=== PATIENT | female | born 1985 | race African-American/Black ===

== ENCOUNTER 2017-11-08 07:34 | Emergency (ER) | payer OTHER, SELFPAY ==
--- OUTSIDE RECORDS SUMMARY | 2017-11-08 07:37 | XMS REPORT ---
:1985 [facility] Address [address] [place] [address] [address]. [address] [place] [address] Care Team Providers Name Role Phone Unavailable Unavailable Unavailable Problems This patient has no known problems. Allergies, Adverse Reactions, Alerts This patient has no known allergies or adverse reactions. Medications This patient has no known medications. Encounters Start End Encounter Admission Attending Care Care Encounter Date/Time Date/Time Type Type Clinicians Facility Department ID 2017-03-13 2017-03-[address] [facility] [id number] 00:00:00 00:00:00 2017-03-10 2017-03-[address] [facility] [id number] 00:00:00 00:00:00 2017-03-06 2017-03-[address] [facility] [id number] 09:54:36 09:54:36
--- OUTSIDE RECORDS SUMMARY | 2017-11-08 07:37 | XMS REPORT | Clinical Summary ---
:1985 Author Organization [facility] Address [address] [place] [address] Care Team Providers Name Role Phone Asked, No Pcp Primary Care Provider Unavailable Allergies No Known Allergies Current Medications Prescription Sig. Disp. Refills Start Date End Date Status cefpodoxime (VANTIN) Take 1 tablet 20 tablet 0 03/09/2017 03/19/2017 200 MG tablet (200 mg total) by mouth 2 (two) times a day for 10 days. ondansetron (ZOFRAN) Take 1 tablet (4 20 tablet 0 03/09/2017 03/14/2017 4 MG tablet mg total) by mouth every 6 (six) hours for 5 days. keTOROlac (TORadol) Take 1 tablet 20 tablet 0 03/11/2017 03/16/2017 10 mg tablet (10 mg total) by mouth every 6 (six) hours as needed for moderate pain for up to 5 days. Active Problems Not on file Encounters Date Type Specialty Care Team Description 03/11/2017 Emergency Emergency Medicine Carlos Hussein Pelvic pain in female (Primary Dx); DO Aubrey Urinary tract infection in female; Cervicitis 03/09/2017 Emergency Emergency Medicine Toribio Quintana Acute UTI ( urinary tract MD Will infection) (Primary Dx) after 11/07/2016 Social History Tobacco Use Types Packs/Day Years Used Date Never Smoker Alcohol Use Drinks/Week oz/Week Comments No Sex Assigned at Date Recorded Not on file Last Filed Vital Signs Vital Sign Reading Time Taken Blood Pressure 117/67 03/11/2017 1:28 AM CDT Pulse 85 03/11/2017 1:28 AM CDT Temperature 36.8 C (98.3 F) 03/11/2017 1:28 AM CDT Respiratory Rate 15 03/11/2017 1:28 AM CDT Oxygen Saturation 100% 03/11/2017 1:28 AM CDT Inhaled Oxygen Concentration - - Weight - - Height 165.1 cm (5' 5") 03/11/2017 1:28 AM CDT Body Mass Index - - Plan of Treatment Not on file Results GC By [employer] (03/09/2017 4:30 PM) Component Value Ref Range GC, [employer] Negative for Neisseria gonorrhoeae. Comment: Specimen Information Specimen Source: Cervical Specimen Site: Other Specimen Performing Laboratory Cervical - Other [facility] DEPARTMENT OF PATHOLOGY AND GENOMIC MEDICINE [address] [place] [phone] Urinalysis screen and microscopy, with reflex to culture (03/09/2017 2:58 PM) Component Value Ref Range Specimen site Clean catch Color, UA Straw Appearance, UA Clear Specific gravity, UA 1.005 1.001 - 1.035 pH, UA 8.0 5.0 - 8.5 Protein, UA Negative Negative Glucose, UA Negative Negative Ketones, UA Negative Negative Bilirubin, UA Negative Negative Blood, UA Small (A) Negative Nitrite, UA Negative Negative Urobilinogen, UA <2.0 <2.0 Leukocyte esterase, UA Large (A) Negative Epithelial cells, UA 4 /HPF WBC, UA 18 (H) 0 - 4 /HPF RBC, UA 3 (H) 0 - 2 /HPF Bacteria, UA Few None seen Yeast, UA None seen Yeast with pseudohyphae, UA None seen Specimen Performing Laboratory Urine [facility] DEPARTMENT OF PATHOLOGY AND GENOMIC MEDICINE [address] [place] [address] hCG qualitative, urine screen (03/09/2017 2:58 PM) Component Value Ref Range hCG qualitative, urine NegativeComment: Sensitivity of HCG test: 25 mIU/mL Specimen Performing Laboratory Urine [facility] DEPARTMENT OF PATHOLOGY AND GENOMIC MEDICINE [address] [place] [address] Gram stain (03/09/2017 2:58 PM) Component Value Ref Range Gram stain result Rare WBC's Rare Gram positive cocci in pairs Rare Gram negative rods Comment: Specimen Information Specimen Source: Urine Specimen Site: See UA Specimen Performing Laboratory Urine [facility] DEPARTMENT OF PATHOLOGY AND GENOMIC MEDICINE [address] [place] [phone] Urine culture (03/09/2017 2:58 PM) Component Value Ref Range Urine culture isolate Gram positive rosio 10-2 cfu/ml (A) Comment: Specimen Information Specimen Source: Urine Specimen Site: See UA Specimen Performing Laboratory Urine [facility] DEPARTMENT OF PATHOLOGY AND [facility] MEDICINE [address] [place] [id number] Estimated GFR (03/09/2017 1:30 PM) Component Value Ref Range GFR Non Af Amer >90 mL/min/1.73 m2 GFR Af Amer >90 mL/min/1.73 m2 Comment: Chronic kidney disease: <60 mL/min/1.73m2 Kidney failure: <15 mL/min/1.73m2 The estimated GFR is calculated from the IDMS-traceable Modification of Diet in Renal Disease Equation. The accuracy of the calculation is poor when the creatinine is normal. Calculated values >90 mL/min/1.73m2 are not reported. This equation has not been validated in children (<18 years), women, the elderly (>70 years), or ethnic groups other than Caucasians and Americans. Specimen Performing Laboratory Plasma specimen [facility] DEPARTMENT OF PATHOLOGY AND [address] [address] Partial thromboplastin time, activated (03/09/2017 1:30 PM) Component Value Ref Range PTT 29.4 23.0 - 36.0 sec Comment: PTT therapeutic range for unfractionated heparin is 61.0-112.0 seconds which corresponds to Anti-Xa 0.3-0.7 U/ml. Specimen Performing Laboratory Blood [facility] DEPARTMENT OF PATHOLOGY AND [facility] MEDICINE [address] [place] [address] Prothrombin time with INR (03/09/2017 1:30 PM) Component Value Ref Range Prothrombin time 13.8 12.0 - 15.0 sec INR 1.1 Comment: The International Normalized Ratio (INR) is a therapeutic monitoring tool for patients who are stable on oral anticoagulant therapy. An INR of 2.0-3.0 is suggested for deep vein thrombosis/pulmonary embolism. Specimen Performing Laboratory Blood [facility] DEPARTMENT OF PATHOLOGY AND [facility] MEDICINE [address] [place] [address] CBC with platelet and differential (03/09/2017 1:30 PM) Component Value Ref Range WBC 7.43 4.50 - 11.00 k/uL RBC 3.88 (L) 4.20 - 5.50 m/uL HGB 10.9 (L) 12.0 - 16.0 g/dL HCT 35.5 (L) 37.0 - 47.0 % MCV 91.5 82.0 - 100.0 fL MCH 28.1 27.0 - 34.0 pg MCHC 30.7 (L) 31.0 - 37.0 g/dL RDW - SD 47.1 37.0 - 55.0 fL MPV 11.3 8.8 - 13.2 fL Platelet count 212 150 - 400 k/uL Nucleated RBC 0.00 /100 WBC Neutrophils 72.6 (H) 39.0 - 69.0 % Lymphocytes 19.8 (L) 25.0 - 45.0 % Monocytes 6.3 0.0 - 10.0 % Eosinophils 0.5 0.0 - 5.0 % Basophils 0.5 0.0 - 1.0 % Immature granulocytes 0.3Comment: "Immature granulocytes" 0.0 - 1.0 % (promyelocytes, myelocytes, metamyelocytes) Specimen Performing Laboratory Blood [facility] DEPARTMENT OF PATHOLOGY AND [facility] MEDICINE [address] [place] [address] Lipase level (03/09/2017 1:30 PM) Component Value Ref Range Lipase 22 13 - 60 U/L Specimen Performing Laboratory Plasma specimen [facility] DEPARTMENT OF PATHOLOGY AND GENOMIC MEDICINE [address] [place] [phone] Comprehensive metabolic panel (03/09/2017 1:30 PM) Component Value Ref Range Sodium 141 135 - 148 mEq/L Potassium 3.2 (L) 3.5 - 5.0 mEq/L Chloride 101 98 - 112 mEq/L CO2 29 24 - 31 mEq/L Anion gap 11 7 - 15 mEq/L Comment: Starting from November , anion gap calculation no longer incorporates potassium. Please note the change. BUN 7 6 - 20 mg/dL Creatinine 0.7 0.5 - 0.9 mg/dL Glucose 78 65 - 99 mg/dL Calcium 9.4 8.3 - 10.2 mg/dL Protein 7.9 6.3 - 8.3 g/dL Comment: 4.6-7.0 g/dL 1 week 4.4-7.6 g/dL 7 months-1year5.1-7.3 g/dL 1-2 years5.6-7.5 g/dL >3 years6.0-8.0 g/dL 18-150 6.3-8.3 g/dL Albumin 3.6 3.5 - 5.0 g/dL A/G ratio 0.8 0.7 - 3.8 Alkaline phosphatase 49 35 - 104 U/L AST 22 10 - 35 U/L ALT 15 5 - 50 U/L Total bilirubin 0.7 0.0 - 1.2 mg/dL Specimen Performing Laboratory Plasma specimen [facility] DEPARTMENT OF PATHOLOGY AND GENOMIC MEDICINE [address] [place] [id number] after 11/07/2016 Insurance Payer Benefit Plan / Group Subscriber ID Type Phone Address [employer] [facility] xxxxxxxxx O
[2017-11-08 08:43] LABS: Urine Blood 2+ (NEG); Urine Glucose NEGATIVE (NEG); Urine Protein NEGATIVE (NEG); Urine Specific Gravity 1.025 (1.005-1.030); Urine pH 6.5 (5.0-7.0)
[2017-11-08 08:48] LABS: Absolute Lymphocytes (CBC) 1.4 K/uL (0.7-4.9); Absolute Monocytes 0.4 K/uL (0.1-1.3); Absolute Neutrophil 2.5 K/uL (1.8-8.0); Basophils % 0.7 % (0-1.3); Eosinophils % 2.5 % (0-4.4); Hematocrit 33.4 % (36.0-45.0); Lymphocytes % 32.1 % (15.3-44.8); MCH 27.1 pg (27.0-35.0); MCV 85.9 fL (80-100); MPV 9.6 fL (7.6-11.3); RBC Red Blood Cell Count 3.89 M/uL (3.86-4.86)
[2017-11-08 08:59] LABS: Urine Bacteria <20 /HPF (<20); Urine Culture Reflex Order NOT NEEDED; Urine RBC <5 /HPF (NONE SEEN)
--- NOTE | 2017-11-08 09:03 | RAD REPORT ---
EXAM DESCRIPTION: CT - Stone Protocol - 11/08/2017 8:47 am CLINICAL HISTORY: Abdominal pain. Left lower quadrant pain COMPARISON: None. TECHNIQUE: Computed axial tomography of the abdomen pelvis was obtained without oral or IV contrast. Lack of IV and oral contrast limits evaluation of solid organs, bowel, and vessels. Coronal reformat amparo images were obtained and reviewed. All CT scans are performed using dose optimization technique as appropriate and may include automated exposure control or mA/KV adjustment according to patient size. FINDINGS: A renal calculus is not seen. An ureteral calculus is not noted. A bladder calculus is not present. The liver, spleen, pancreas and adrenals appear grossly normal There is no evidence of diverticulitis. The appendix appears normal. An adnexal mass is not displayed A large amount stool is present throughout the colon. There is an equivocal small umbilical hernia IMPRESSION: Negative for a genitourinary calculus A large amount stool is present throughout the colon
[2017-11-08 09:27] LABS: Bicarbonate 29 mEq/L (21-31); Glucose Level 95 mg/dL (65-120); Lipase 35 U/L (22-51); Potassium 3.5 mEq/L (3.6-5.0); Sodium Level 136 mEq/L (135-145)
--- NOTE | 2017-11-08 09:29 | EDPHYS ---
Physician Documentation [facility] Name: Trina Grimaldo Age: 32 yrs Sex: Female : 1985 Arrival Date: 11/08/2017 Time: 07:36 Bed 15 Private MD: ED Physician Dani Wu HPI: 11/08 08:00 This 32 yrs old Black Female presents to ER via Unassigned with complaints of Abdominal rn Pain. 08:00 The patient presents with abdominal pain in the left lower quadrant, left flank. Onset: rn The symptoms/episode began/occurred 1 month(s) ago. The symptoms do not radiate. Associated signs and symptoms: Pertinent negatives: nausea and vomiting, anorexia, blood in stools, chest pain, constipation, diarrhea, dysuria, fever, hematuria, vaginal discharge, vomiting. The symptoms are described as crampy. Modifying factors: The symptoms are alleviated by nothing, the symptoms are aggravated by nothing. Severity of pain: At its worst the pain was moderate in the emergency department the pain has improved. The patient has not experienced similar symptoms in the past. The patient has not recently seen a physician. 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 - Family history:: not pertinent. - Social history:: Smoking status: Patient/guardian denies using tobacco. - Hospitalizations: : No recent hospitalization is reported. ROS: 08:00 Constitutional: Negative for fever, chills, and weight loss, Eyes: Negative for injury, rn pain, redness, and discharge, Neck: Negative for injury, pain, and swelling, Cardiovascular: Negative for chest pain, palpitations, and edema, Respiratory: Negative for shortness of breath, cough, wheezing, and pleuritic chest pain, Abdomen/GI: Negative for nausea, vomiting, diarrhea, and constipation, MS/Extremity: Negative for injury and deformity, Skin: Negative for injury, rash, and discoloration, Neuro: Negative for headache, weakness, numbness, tingling, and seizure. Exam: 08:00 Constitutional: This is a well developed, well nourished patient who is awake, alert, rn and in no acute distress. Head/Face: Normocephalic, atraumatic. Eyes: Pupils equal round and reactive to light, extra-ocular motions intact. Lids and lashes normal. Conjunctiva and sclera are non-icteric and not injected. Cornea within normal limits. Periorbital areas with no swelling, redness, or edema. Cardiovascular: Regular rate and rhythm with a normal S1 and S2. No gallops, murmurs, or rubs. Normal PMI, no JVD. No pulse deficits. Respiratory: Lungs have equal breath sounds bilaterally, clear to auscultation and percussion. No rales, rhonchi or wheezes noted. No increased work of breathing, no retractions or nasal flaring. Abdomen/GI: soft, mild Left flank tenderness, no rebound/guarding Back: No spinal tenderness. No costovertebral tenderness. Full range of motion. Skin: Warm, dry with normal turgor. Normal color with no rashes, no lesions, and no evidence of cellulitis. MS/ Extremity: Pulses equal, no cyanosis. Neurovascular intact. Full, normal range of motion. Equal circumference. Neuro: Awake and alert, GCS 15, oriented to person, place, time, and situation. Cranial nerves II-XII grossly intact. Motor strength 5/5 in all extremities. Sensory grossly intact. Cerebellar exam normal. Normal gait. Vital Signs: 07:40 BP 116 / 90; Pulse 78; Resp 18; Temp 98.3(O); Pulse Ox 100% on R/A; Weight 54.43 kg; rb1 Height 5 ft. 5 in. (165.10 cm); Pain 8/10; 08:38 rb1 08:48 BP 112 / 64; Pulse 64; Resp 19; Pulse Ox 100% on R/A; rb1 09:38 BP 114 / 86; Pulse 67; Resp 16; Pulse Ox 100% on R/A; rb1 07:40 Body Mass Index 19.97 (54.43 kg, 165.10 cm) rb1 08:[address] rb1 MDM: 07:39 Patient medically screened. rn 09:28 Differential diagnosis: diverticulitis, non-specific abd pain, Ureterolithiasis, rn urinary tract infection. Data reviewed: vital signs, nurses notes, lab test result(s), radiologic studies, CT scan, and as a result, I will discharge patient. Counseling: I had a detailed discussion with the patient and/or guardian regarding: the historical points, exam findings, and any diagnostic results supporting the discharge/admit diagnosis, lab results, radiology results, the need for outpatient follow up, to return to the emergency department if symptoms worsen or persist or if there are any questions or concerns that arise at home. Special discussion: I discussed with the patient/guardian in detail that at this point there is no indication for admission to the hospital. It is understood, however, that if the symptoms persist or worsen the patient needs to return immediately for re-evaluation. 11/08 07:57 Order name: Basic Metabolic Panel; Complete Time: 09:34 rn 11/08 07:57 Order name: CBC with Diff; Complete Time: 09:12 rn 11/08 07:57 Order name: Hepatic Function; Complete Time: 09:34 rn 11/08 07:57 Order name: Lipase; Complete Time: 09:34 rn 11/08 07:57 Order name: Urine Microscopic Only; Complete Time: 09:12 rn 11/08 08:04 Order name: Urine Dipstick--Ancillary (enter results); Complete Time: 09:12 bd 11/08 07:57 Order name: Urine Test (obtain specimen); Complete Time: 08:33 rn 11/08 07:57 Order name: IV Saline Lock; Complete Time: 08:33 rn 11/08 07:57 Order name: Labs collected and sent; Complete Time: 08:33 rn 11/08 07:57 Order name: Urine Dipstick-Ancillary (obtain specimen); Complete Time: 08:33 rn 11/08 07:57 Order name: CT Stone Protocol; Complete Time: 09:12 rn 11/08 08:04 Order name: Urine --Ancillary (enter results); Complete Time: 09:12 bd Administered Medications: No medications were administered Disposition: 11/08/17 09:29 Discharged to Home. Impression: Unspecified abdominal pain, Constipation, unspecified. - Condition is Stable. - Discharge Instructions: Abdominal Pain, Adult, Abdominal Pain, Women, Constipation, Adult, [id number]. - Medication Reconciliation Form, Thank You Letter, Antibiotic Education, Prescription Opioid Use form. - Follow up: Private Physician; When: As needed; Reason: Recheck today's complaints, Re-evaluation by your physician. - Problem is an ongoing problem. - Symptoms are unchanged. Signatures: Dispatcher [employer] EDDani Garvey MD MD rn Jaja Villanueva RN RN rb1
--- NOTE | 2017-11-08 09:29 | ER ---
Nurse's Notes [facility] Name: Trina Grimaldo Age: 32 yrs Sex: Female : 1985 Arrival Date: 11/08/2017 Time: 07:36 Bed 15 Private MD: Diagnosis: Unspecified abdominal pain;Constipation, unspecified Presentation: 11/08 07:40 Presenting complaint: Patient states: lower left back and side has been hurting for a rb1 month. The pain comes and goes. Transition of care: patient was not received from another setting of care. Onset of symptoms is unknown. Care prior to arrival: None. 07:40 Method Of Arrival: Ambulatory rb1 07:40 Acuity: TRI 3 rb1 Triage Assessment: 07:40 General: Appears in no apparent distress. comfortable, slender, Behavior is calm, rb1 cooperative. Pain: Complains of pain in left flank Pain currently is 8 out of 10 on a pain scale. Quality of pain is described as crampy. Neuro: Level of Consciousness is awake, alert, obeys commands, Oriented to person, place, time, situation. Cardiovascular: Capillary refill < 3 seconds is brisk in bilateral fingers. Respiratory: Airway is patent Respiratory effort is even, unlabored, Respiratory pattern is regular, symmetrical. GI: Patient currently denies diarrhea, nausea, vomiting. : No signs and/or symptoms were reported regarding the genitourinary system. Derm: Skin is dry, Skin is normal, Skin temperature is warm. 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 - Family history:: not pertinent. - Social history:: Smoking status: Patient/guardian denies using tobacco. - Hospitalizations: : No recent hospitalization is reported. Screenin:40 Abuse screen: Denies threats or abuse. Nutritional screening: No deficits noted. rb1 Tuberculosis screening: No symptoms or risk factors identified. Fall Risk None identified. Assessment: 07:40 General: See triage assessment. rb1 07:40 GI: Bowel sounds present X 4 quads. Abd is soft Abd is non tender in left flank. rb1 08:35 Reassessment: Patient appears in no apparent distress at this time. No changes from rb1 previously documented assessment. pt. is watching TV. Call light within reach. 08:38 Reassessment: pt. went to CT. rb1 09:30 Reassessment: Patient appears in no apparent distress at this time. Patient and/or rb1 family updated on plan of care and expected duration. Pain level reassessed. Patient is alert, oriented x 3, equal unlabored respirations, skin warm/dry/pink. Vital Signs: 07:40 BP 116 / 90; Pulse 78; Resp 18; Temp 98.3(O); Pulse Ox 100% on R/A; Weight 54.43 kg; rb1 Height 5 ft. 5 in. (165.10 cm); Pain 8/10; 08:38 rb1 08:48 BP 112 / 64; Pulse 64; Resp 19; Pulse Ox 100% on R/A; rb1 09:38 BP 114 / 86; Pulse 67; Resp 16; Pulse Ox 100% on R/A; rb1 07:40 Body Mass Index 19.97 (54.43 kg, 165.10 cm) rb1 08:[address] rb1 ED Course: 07:36 Patient arrived in ED. as 07:39 Dani Wu MD is Attending Physician. rn 07:40 Arm band placed on right wrist. rb1 07:40 Patient has correct armband on for positive identification. Bed in low position. Call rb1 light in reach. Side rails up X 1. Pulse ox on. NIBP on. 08:00 Jaja Villanueva, RN is Primary Nurse. rb1 08:00 Inserted saline lock: 22 gauge in right antecubital area, using aseptic technique. rb1 Blood collected. 08:02 Triage completed. rb1 08:[address] rb1 08:47 CT Stone Protocol In Process Unspecified. EDMS 08:47 CT completed. Patient moved back from CT. jg1 09:40 No provider procedures requiring assistance completed. IV discontinued, intact, rb1 bleeding controlled, No redness/swelling at site. Pressure dressing applied. Administered Medications: No medications were administered Outcome: :29 Discharge ordered by MD. rn 09:40 Discharged to home ambulatory. rb1 09:40 Condition: stable 09:40 Discharge instructions given to patient, Instructed on discharge instructions, follow up and referral plans. Demonstrated understanding of instructions, follow-up care, Prescriptions given X none 09:40 Patient left the ED. rb1 Signatures: Dispatcher [employer] Bernarda Menezes Amelia as Nieto, Roman, MD MD rn Barber, Rebecca, RN RN rb1 Corrections: (The following items were deleted from the chart) 08:38 07:40 Pain: Complains of pain in left mid back Pain currently is 8 out of 10 on a pain rb1 scale. Quality of pain is described as crampy, rb1 09:42 09:41 Patient left the ED. rb1 rb1
[2017-11-08 09:33] LABS: ALT/SGPT 13 IU/L (10-60); AST/SGOT 21 IU/L (10-42); Albumin 3.7 g/dL (3.2-5.5); Alkaline Phosphatase 42 IU/L (42-121); BUN Blood Urea Nitrogen 12 mg/dL (6-20); Bilirubin Direct 0.1 mg/dL (0-0.2); Bilirubin Total 0.2 mg/dL (0.3-1.2); Glomerular Filtration Rate > 90 mL/min (=/>90); Protein, Total 7.2 g/dL (6.0-8.3)
== END 2017-11-08 09:41 | disposition home or self-care (01) ==
LOC: ER 07:34
DX: K59.00 Constipation, unspecified (principal)
CPT/HCPCS: 36415; 74176; 76377; 80048; 80076; 81003; 81015; 81025; 83690; 85025; 99284

== ENCOUNTER 2017-11-15 | Emergency (ER) | payer OTHER, SELFPAY ==
--- OUTSIDE RECORDS SUMMARY | 2017-11-15 17:35 | XMS REPORT ---
:1985 [facility] Address [address] [place] [address] [address]. [address] [place] [address] Care Team Providers Name Role Phone Unavailable Unavailable Unavailable Problems This patient has no known problems. Allergies, Adverse Reactions, Alerts This patient has no known allergies or adverse reactions. Medications This patient has no known medications. Encounters Start End Encounter Admission Attending Care Care Encounter Date/Time Date/Time Type Type Clinicians Facility Department ID 2017-03-13 2017-03-13 Outpatient [facility] [id number] 00:00:00 00:00:00 2017-03-10 2017-03-10 Outpatient [facility] [id number] 00:00:00 00:00:00 2017-03-06 2017-03-06 Outpatient [facility] [id number] 09:54:36 09:54:36
--- OUTSIDE RECORDS SUMMARY | 2017-11-15 17:35 | XMS REPORT | Clinical Summary ---
:1985 Author Organization [facility] Address [address] [place] [address] Care Team Providers Name Role Phone Asked, [...] tract MD Will infection) (Primary Dx) after 11/14/2016 Social History Tobacco Use Types Packs/Day Years [...] Other Specimen Performing Laboratory Cervical - Other [facility] DEPARTMENT OF PATHOLOGY AND GENOMIC MEDICINE [address] [place] [phone] Urinalysis screen and microscopy, with reflex to [...] UA None seen Specimen Performing Laboratory Urine [facility] DEPARTMENT OF PATHOLOGY AND GENOMIC MEDICINE [address] [place] [address] [phone] hCG qualitative, urine screen (03/09/2017 2:58 PM) Component Value Ref Range hCG qualitative, urine NegativeComment: Sensitivity of HCG test: 25 mIU/mL Specimen Performing Laboratory Urine [facility] DEPARTMENT OF PATHOLOGY AND GENOMIC MEDICINE [address] [place] [address] [phone] Gram stain (03/09/2017 2:58 PM) Component Value Ref Range Gram stain result Rare WBC's Rare Gram positive cocci in pairs Rare Gram negative rods Comment: Specimen Information Specimen Source: Urine Specimen Site: See UA Specimen Performing Laboratory Urine [facility] DEPARTMENT OF PATHOLOGY AND GENOMIC MEDICINE [address] [place] [address] [phone] Urine culture (03/09/2017 2:58 PM) Component Value Ref Range Urine culture isolate Gram positive rosio 10-2 cfu/ml (A) Comment: Specimen Information Specimen Source: Urine Specimen Site: See UA Specimen Performing Laboratory Urine [facility] DEPARTMENT OF PATHOLOGY AND [facility] [address] [place] [address] 11004 Estimated GFR (03/09/2017 1:30 PM) Component Value [...] and Americans. Specimen Performing Laboratory Plasma specimen [facility] DEPARTMENT OF PATHOLOGY AND [address] [address] Partial thromboplastin time, activated (03/09/2017 1:30 PM) Component Value Ref Range PTT 29.4 23.0 - 36.0 sec Comment: PTT therapeutic range for unfractionated heparin is 61.0-112.0 seconds which corresponds to Anti-Xa 0.3-0.7 U/ml. Specimen Performing Laboratory Blood [facility] DEPARTMENT OF PATHOLOGY AND [facility] [address] [place] [address]108 Prothrombin time with INR (03/09/2017 1:30 PM) Component Value Ref Range Prothrombin time 13.8 12.0 - 15.0 sec INR 1.1 Comment: The International Normalized Ratio (INR) is a therapeutic monitoring tool for patients who are stable on oral anticoagulant therapy. An INR of 2.0-3.0 is suggested for deep vein thrombosis/pulmonary embolism. Specimen Performing Laboratory Blood [facility] DEPARTMENT OF PATHOLOGY AND [facility] [address] [place] [address] 41986 CBC with platelet and differential (03/09/2017 1:30 [...] (promyelocytes, myelocytes, metamyelocytes) Specimen Performing Laboratory Blood [facility] DEPARTMENT OF PATHOLOGY AND [facility] [address] [place] [phone] Lipase level (03/09/2017 1:30 PM) Component Value Ref Range Lipase 22 13 - 60 U/L Specimen Performing Laboratory Plasma specimen [facility] DEPARTMENT OF PATHOLOGY AND GENOMIC MEDICINE [address] [place] [phone] Comprehensive metabolic panel (03/09/2017 1:30 PM) Component [...] 1.2 mg/dL Specimen Performing Laboratory Plasma specimen [facility] DEPARTMENT OF PATHOLOGY AND GENOMIC MEDICINE [address] [place] [address] after 11/14/2016 Insurance Payer Benefit Plan / Group Subscriber ID Type Phone Address [employer] [facility] xxxxxxxxx O
--- NOTE | 2017-11-15 18:49 | EDPHYS ---
Physician Documentation [facility] Name: Trina Grimaldo Age: 32 yrs Sex: Female : 1985 Arrival Date: 11/15/2017 Time: 17:36 Bed 17 Private MD: ED Physician Campbell Grove HPI: 11/15 23:15 This 32 yrs old Black Female presents to ER via Ambulatory with complaints of Foot Pain.kdr 23:15 The patient presents with pain, that is chronic, tenderness, red and cracking between kdr her toes on both feet. The complaints affect the left foot, right foot. Context: The problem was sustained at home, resulted from a chronic condition. Onset: The symptoms/episode began/occurred at an unknown time. Modifying factors: The symptoms are alleviated by nothing, the symptoms are aggravated by spray solutions. Associated signs and symptoms: The patient has no apparent associated signs or symptoms. Severity of symptoms: At their worst the symptoms were mild. The patient has experienced similar episodes in the past. The patient has not recently seen a physician. 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 - Social history:: Smoking status: Patient/guardian denies using tobacco. ROS: 23:15 MS/extremity: Positive for erythema, pain, tenderness, cracked skin between all toes. kdr 23:18 Constitutional: Negative for fever, chills, and weight loss. kdr Exam: 23:15 Constitutional: This is a well developed, well nourished patient who is awake, alert, kdr and in no acute distress. 23:15 Musculoskeletal/extremity: Typical tenia pedis presentation on both feet. Vital Signs: 17:40 BP 117 / 77; Pulse 68; Resp 18; Temp 98.6(O); Pulse Ox 100% on R/A; Weight 56.7 kg; hj Height 5 ft. 5 in. (165.10 cm); Pain 9/10; 17:40 Body Mass Index 20.80 (56.70 kg, 165.10 cm) jihan MDM: 18:48 Patient medically screened. kdr 23:18 Data reviewed: vital signs, nurses notes. Counseling: I had a detailed discussion with kdr the patient and/or guardian regarding: the historical points, exam findings, and any diagnostic results supporting the discharge/admit diagnosis, the need for outpatient follow up. Administered Medications: No medications were administered Disposition: 11/15/17 18:48 Discharged to Home. Impression: Tinea pedis. - Condition is Stable. - Discharge Instructions: Athlete's Foot, [id number]. - Prescriptions for Clotrimazole 1 % Topical Cream - Apply to affected area 1 application by TOPICAL route every 12 hours; 15 gram. - Medication Reconciliation Form, Thank You Letter, Antibiotic Education, Prescription Opioid Use form. - Follow up: Private Physician; When: 2 - 3 days; Reason: If symptoms return, Further diagnostic work-up, Recheck today's complaints, Continuance of care, Re-evaluation by your physician. - Problem is an ongoing problem. - Symptoms are unchanged. Signatures: Campbell Grove MD MD kdr Munoz, Edgar, CONDUCTOR ORCHESTRA CONDUCTOR ORCHESTRA Joel Handy, RN RN
--- NOTE | 2017-11-15 18:49 | ER ---
Nurse's Notes [facility] Name: Trina Grimaldo Age: 32 yrs Sex: Female : 1985 Arrival Date: 11/15/2017 Time: 17:36 Bed 17 Private MD: Diagnosis: Tinea pedis Presentation: 11/15 17:37 Presenting complaint: Patient states: i used a spray for both my foot coz i wear tennis hj shoes and it mariscal and makes it worst;. Transition of care: patient was not received from another setting of care. Onset of symptoms was November 15, 2017. Care prior to arrival: None. 17:37 Method Of Arrival: Ambulatory 17:37 Acuity: TRI 4 hj Triage Assessment: 17:39 General: Appears in no apparent distress. uncomfortable, Behavior is calm, cooperative, hj appropriate for age. Pain: Complains of pain in right foot and left foot. 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 - Social history:: Smoking status: Patient/guardian denies using tobacco. Screenin:57 Abuse screen: Denies threats or abuse. Nutritional screening: No deficits noted. em Tuberculosis screening: No symptoms or risk factors identified. Fall Risk None identified. Assessment: 18:01 General: Appears in no apparent distress. comfortable. Pain: Complains of pain in left em foot and right foot. Neuro: Level of Consciousness is awake, alert, obeys commands, Oriented to person, place, time, situation. Cardiovascular: Capillary refill < 3 seconds Patient's skin is warm and dry. Respiratory: Airway is patent Respiratory effort is even, unlabored, Respiratory pattern is regular, symmetrical. GI: Abdomen is flat. : No signs and/or symptoms were reported regarding the genitourinary system. EENT: No signs and/or symptoms were reported regarding the EENT system. Derm: Skin is intact, Skin is pink, warm \T\ dry. appears to be classic tinea pedis in between webbing of toes. Musculoskeletal: Range of motion: intact in all extremities. 18:15 General: The previous assessment is accurate, call light remains within reach. Vital Signs: 17:40 BP 117 / 77; Pulse 68; Resp 18; Temp 98.6(O); Pulse Ox 100% on R/A; Weight 56.7 kg; hj Height 5 ft. 5 in. (165.10 cm); Pain 9/10; 17:40 Body Mass Index 20.80 (56.70 kg, 165.10 cm) ED Course: 17:36 Patient arrived in ED. tw3 17:37 Campbell Grove MD is Attending Physician. kdr 17:39 Triage completed. hj 17:39 Arm band placed on left wrist. hj 18:31 James Garcia LVN is Primary Nurse. em 18:57 Patient has correct armband on for positive identification. Bed in low position. Call em light in reach. 18:57 No provider procedures requiring assistance completed. Patient did not have IV access em during this emergency room visit. Administered Medications: No medications were administered Outcome: 18:48 Discharge ordered by . kdr 18:58 Discharged to home ambulatory. em 18:58 Condition: good 18:58 Discharge instructions given to patient, Instructed on discharge instructions, follow up and referral plans. medication usage, Demonstrated understanding of instructions, follow-up care, medications, Prescriptions given X 1. 18:58 Patient left the ED. em Signatures: Campbell Grove MD MD [facility] James Garcia LVN LVN em Alejandra Mccain RN RN Joel Logan RN RN Shena Wilcox tw3 Corrections: (The following items were deleted from the chart) 17:42 17:40 Pulse 68bpm; Resp 18bpm; Pulse Ox 100% RA; Temp 98.6F Oral; 56.7 kg; Height 5 ft. hj 5 in.; BMI: 20.8; Pain 9/10; hj
== END 2017-11-15 18:58 | disposition home or self-care (01) ==
DX: B35.3 Tinea pedis (principal)
CPT/HCPCS: 99282

== ENCOUNTER 2018-03-24 01:20 | Emergency (ER) | payer SELFPAY ==
--- OUTSIDE RECORDS SUMMARY | 2018-03-24 01:22 | XMS REPORT | Clinical Summary ---
:1985 Author Organization [facility] Address [address] [place] [address] Care Team Providers Name Role Phone Asked, No Pcp Primary Care Provider Unavailable Allergies No Known Allergies Current Medications No known medications Active Problems Not on file Social History Tobacco Use Types Packs/Day Years Used Date Never Smoker Alcohol Use Drinks/Week oz/Week Comments No Sex Assigned at Date Recorded Not on file Last Filed Vital Signs Not on file Plan of Treatment Not on file Results Not on fileafter 03/23/2017 Insurance Payer Benefit Plan / Group Subscriber ID Type Phone Address [employer] [facility] xxxxxxxxx O
--- OUTSIDE RECORDS SUMMARY | 2018-03-24 01:22 | XMS REPORT ---
:1985 [facility] Address [address] [place] [address] [address] [place] [address] Care Team Providers Name Role Phone Unavailable Unavailable Unavailable Problems This patient has no known problems. Allergies, Adverse Reactions, Alerts This patient has no known allergies or adverse reactions. Medications This patient has no known medications. Encounters Start End Encounter Admission Attending Care Care Encounter Date/Time Date/Time Type Type Clinicians Facility Department ID 2017-03-13 2017-03-13 Outpatient [facility] [id number] 00:00:00 00:00:00 2017-03-10 2017-03-10 Outpatient [facility] [id number] 00:00:00 00:00:00 2017-03-06 2017-03-06 Outpatient [facility] [id number] 09:54:36 09:54:36
--- NOTE | 2018-03-24 01:45 | ER ---
Nurse's Notes [facility] Name: Trina Grimaldo Age: 33 yrs Sex: Female : 1985 Arrival Date: 03/24/2018 Time: 01:21 Bed 24 Private MD: Diagnosis: Periapical abscess without sinus Presentation: 03/24 01:30 Presenting complaint: Patient states: Pain to left lower side of mouth; States dentist lp1 appt scheduled for 03/29 but pain was unbearable tonight, had to leave work; Denies any fever. Transition of care: patient was not received from another setting of care. Onset of symptoms was March 24, 2018. Risk Assessment: Do you want to hurt yourself or someone else? Patient reports no desire to harm self or others. Initial Sepsis Screen: Does the patient meet any 2 criteria? No. Patient's initial sepsis screen is negative. Does the patient have a suspected source of infection? No. Patient's initial sepsis screen is negative. Care prior to arrival: None. 01:30 Method Of Arrival: Ambulatory lp1 01:30 Acuity: TRI 5 lp1 Triage Assessment: 01:33 Pain: Complains of pain in lower left second molar. EENT: Poor dentition noted. Dental lp1 caries noted in lower left third molar (#17), lower left second molar (#18), lower right second molar (#31) and lower right third molar (#32). 01:34 EENT: Reports pain in lower left second molar Pain is 10 out of 10 on a pain scale. 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 - Social history:: Smoking status: Patient/guardian denies using tobacco. - Ebola Screening: : No symptoms or risks identified at this time. Screenin:32 Abuse screen: Denies threats or abuse. Denies injuries from another. Nutritional lp1 screening: No deficits noted. Tuberculosis screening: No symptoms or risk factors identified. Fall Risk None identified. Assessment: 01:33 General: Appears in no apparent distress. comfortable, Behavior is calm, cooperative. rv Pain: Complains of pain in toothache. Neuro: Level of Consciousness is awake, alert, obeys commands, Oriented to person, place, time, situation. Cardiovascular: Capillary refill < 3 seconds. Respiratory: Airway is patent. GI: No signs and/or symptoms were reported involving the gastrointestinal system. : No signs and/or symptoms were reported regarding the genitourinary system. EENT: No deficits noted. Derm: Skin is intact. Musculoskeletal: No deficits noted. Vital Signs: 01:31 BP 122 / 91; Pulse 78; Resp 16; Temp 98.7(O); Pulse Ox 100% on R/A; Weight 58.97 kg; lp1 Height 5 ft. 5 in. (165.10 cm); Pain 10/10; 01:31 Body Mass Index 21.63 (58.97 kg, 165.10 cm) lp1 ED Course: 01:21 Patient arrived in ED. am2 01:30 Ty Byers NP is PHCP. pm1 01:30 Jean-Claude Farrar MD is Attending Physician. pm1 01:31 Triage completed. lp1 01:31 Arm band placed on left wrist. lp1 01:33 Patient has correct armband on for positive identification. lp1 02:00 No provider procedures requiring assistance completed. Patient did not have IV access rv during this emergency room visit. Administered Medications: 01:59 Drug: [place] 10 mg-325 mg 1 tabs Route: PO; rv 01:59 Follow up: Response: Medication administered at discharge. rv 02:00 Drug: Augmentin 875 mg Route: PO; rv 02:00 Follow up: Response: Medication administered at discharge. rv Outcome: 01:44 Discharge ordered by . pm1 02:00 Discharged to home rv 02:00 Condition: good 02:00 Discharge instructions given to patient, Instructed on discharge instructions, follow up and referral plans. medication usage, Prescriptions given X 2. 02:00 Patient left the ED. rv Signatures: Maggi Crenshaw RN RN lp1 Ty Byers NP MACHINE BRUSHER pm1 Fanta Swartz am2 Hugo Santiago RN RN rv
--- NOTE | 2018-03-24 01:45 | EDPHYS ---
Physician Documentation [facility] Name: Trina Grimaldo Age: 33 yrs Sex: Female : 1985 Arrival Date: 03/24/2018 Time: 01:21 Bed 24 Private MD: ED Physician Jean-Claude Farrar HPI: 03/24 01:40 This 33 yrs old Black Female presents to ER via Ambulatory with complaints of Toothache.pm1 01:40 The patient presents with pain. The problem is located in the lower left third molar, pm1 lower left second molar and lower left first molar. Onset: The symptoms/episode began/occurred 2 day(s) ago. Duration: The symptoms are continuous. Modifying factors: The symptoms are alleviated by nothing, the symptoms are aggravated by nothing. Associated signs and symptoms: Pertinent negatives: dysphagia, fever, inability to eat. Severity of symptoms: in the emergency department the symptoms are actually worse. The patient has experienced similar episodes in the past, a few times. The patient has not recently seen a physician, has an appointment scheduled, in 5 day(s). 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 - Social history:: Smoking status: Patient/guardian denies using tobacco. - Ebola Screening: : No symptoms or risks identified at this time. ROS: 01:40 Constitutional: Negative for fever, chills, and weight loss, Eyes: Negative for injury, pm1 pain, redness, and discharge, Neck: Negative for injury, pain, and swelling, Cardiovascular: Negative for chest pain, palpitations, and edema, Respiratory: Negative for shortness of breath, cough, wheezing, and pleuritic chest pain. 01:40 Abdomen/GI: Negative for abdominal pain, nausea, vomiting, diarrhea, and constipation, Back: Negative for injury and pain, MS/Extremity: Negative for injury and deformity, Skin: Negative for injury, rash, and discoloration, Neuro: Negative for headache, weakness, numbness, tingling, and seizure. 01:40 ENT: Positive for dental pain, Negative for ear pain, sore throat, difficulty swallowing, difficulty handling secretions. Exam: 01:40 Constitutional: This is a well developed, well nourished patient who is awake, alert, pm1 and in no acute distress. Head/Face: Normocephalic, atraumatic. Eyes: Pupils equal round and reactive to light, extra-ocular motions intact. Lids and lashes normal. Conjunctiva and sclera are non-icteric and not injected. Cornea within normal limits. Periorbital areas with no swelling, redness, or edema. 01:40 Neck: Trachea midline, no thyromegaly or masses palpated, and no cervical lymphadenopathy. Supple, full range of motion without nuchal rigidity, or vertebral point tenderness. No Meningismus. Chest/axilla: Normal chest wall appearance and motion. Nontender with no deformity. No lesions are appreciated. Cardiovascular: Regular rate and rhythm with a normal S1 and S2. No gallops, murmurs, or rubs. Normal PMI, no JVD. No pulse deficits. Respiratory: Lungs have equal breath sounds bilaterally, clear to auscultation and percussion. No rales, rhonchi or wheezes noted. No increased work of breathing, no retractions or nasal flaring. Abdomen/GI: Soft, non-tender, with normal bowel sounds. No distension or tympany. No guarding or rebound. No evidence of tenderness throughout. Back: No spinal tenderness. No costovertebral tenderness. Full range of motion. Skin: Warm, dry with normal turgor. Normal color with no rashes, no lesions, and no evidence of cellulitis. MS/ Extremity: Pulses equal, no cyanosis. Neurovascular intact. Full, normal range of motion. 01:40 ENT: External ear(s): are unremarkable, Ear canal(s): are normal, TM's: are normal, Nose: is normal, Mouth: is normal, no drooling, (-) tongue elevation (-) trismus Gums: swollen, Posterior pharynx: is normal, airway is patent, normal tonsil apperance, normal sized tonsils, normal uvula appearance, normal uvula size. 01:40 Neuro: Orientation: is normal, Motor: is normal. Vital Signs: 01:31 BP 122 / 91; Pulse 78; Resp 16; Temp 98.7(O); Pulse Ox 100% on R/A; Weight 58.97 kg; lp1 Height 5 ft. 5 in. (165.10 cm); Pain 10/10; 01:31 Body Mass Index 21.63 (58.97 kg, 165.10 cm) lp1 MDM: 01:30 Patient medically screened. pm1 01:40 Data reviewed: vital signs. Data interpreted: Pulse oximetry: on room air is 100 %. pm1 Interpretation: normal. Counseling: I had a detailed discussion with the patient and/or guardian regarding: the historical points, exam findings, and any diagnostic results supporting the discharge/admit diagnosis, the need for outpatient follow up, for definitive care, a dentist, to return to the emergency department if symptoms worsen or persist or if there are any questions or concerns that arise at home. Administered Medications: 01:59 Drug: [place] 10 mg-325 mg 1 tabs Route: PO; rv 01:59 Follow up: Response: Medication administered at discharge. rv 02:00 Drug: Augmentin 875 mg Route: PO; rv 02:00 Follow up: Response: Medication administered at discharge. rv Disposition: 03:27 Co-signature as Attending Physician, Ty Byers NP I agree with the assessment and tw4 plan of care. Attestation: The patient's history, exam findings, diagnostics, and a summary of any interventions or procedures was reviewed in detail with Ty Byers NP. Disposition: 03/24/18 01:44 Discharged to Home. Impression: Periapical abscess without sinus. - Condition is Stable. - Discharge Instructions: Dental Abscess, Dental Pain. - Prescriptions for Augmentin 875- 125 mg Oral Tablet - take 1 tablet by ORAL route every 12 hours for 10 days; 20 tablet. Tylenol- Codeine #3 300-30 mg Oral Tablet - take 2 tablet by ORAL route every 6 hours As needed; 30 tablet. - Medication Reconciliation Form, Thank You Letter, Antibiotic Education, Prescription Opioid Use form. - Follow up: Emergency Department; When: As needed; Reason: Worsening of condition. Follow up: Private Physician; When: 2 - 3 days; Reason: Recheck today's complaints, Continuance of care, Re-evaluation by your physician. - Problem is new. - Symptoms have improved. Signatures: Maggi Crenshaw RN RN lp1 Ty Byers, PEANUT SORTER PEANUT SORTER pm1 Jean-Claude Farrar MD MD tw4 Hugo Santiago, RN RN rv Corrections: (The following items were deleted from the chart) 02:00 01:44 03/24/2018 01:44 Discharged to Home. Impression: Periapical abscess without rv sinus. Condition is Stable. Forms are Medication Reconciliation Form, Thank You Letter, Antibiotic Education, Prescription Opioid Use. Follow up: Emergency Department; When: As needed; Reason: Worsening of condition. Follow up: Private Physician; When: 2 - 3 days; Reason: Recheck today's complaints, Continuance of care, Re-evaluation by your physician. Problem is new. Symptoms have improved. pm1
[2018-03-24] MEDS ORDERED: AMOX/K CLAV 875 MG TAB ONE (01:58)
[2018-03-24] MEDS ORDERED: HYDROCODONE/APAP 10/325 TAB ONE (01:58)
== END 2018-03-24 02:00 | disposition home or self-care (01) ==
LOC: ER 01:20
DX: K04.7 Periapical abscess without sinus (principal)
CPT/HCPCS: 99283

== ENCOUNTER 2018-04-07 16:06 | Emergency (ER) | payer SELFPAY ==
--- OUTSIDE RECORDS SUMMARY | 2018-04-07 16:08 | XMS REPORT | Clinical Summary ---
:1985 Author Organization [facility] Address [address] [place] [address] Care Team Providers Name Role Phone Asked, [...] Not on file Results Not on fileafter 04/06/2017 Insurance Payer Benefit Plan / Group Subscriber ID Type Phone Address [employer] [facility] xxxxxxxxx O
--- OUTSIDE RECORDS SUMMARY | 2018-04-07 16:09 | XMS REPORT ---
:1985 [facility] Address [address] [place] [address] [address] [place] [address] Care Team Providers Name Role Phone Unavailable Unavailable Unavailable Problems This patient has no known problems. Allergies, Adverse Reactions, Alerts This patient has no known allergies or adverse reactions. Medications This patient has no known medications. Encounters Start End Encounter Admission Attending Care Care Encounter Date/Time Date/Time Type Type Clinicians Facility Department ID 2017-03-13 2017-03-[address] [facility] [id number] 00:00:00 00:00:00 2017-03-10 2017-03-[address] [facility] [id number] 00:00:00 00:00:00 2017-03-06 2017-03-[address] [facility] [id number] 09:54:36 09:54:36
--- NOTE | 2018-04-07 18:16 | EDPHYS ---
Physician Documentation [facility] Name: Trina Grimaldo Age: 33 yrs Sex: Female : 1985 Arrival Date: 04/07/2018 Time: 16:08 Bed 11 Private MD: ED Physician Yovani Luna HPI: 04/07 18:02 This 33 yrs old Black Female presents to ER via Ambulatory with complaints of Toothache.kb 18:02 The patient presents with pain. The problem is located in the lower left second kb bicuspid and lower left first bicuspid. Onset: The symptoms/episode began/occurred last week. Duration: The symptoms are continuous. Modifying factors: The symptoms are alleviated by nothing, the symptoms are aggravated by nothing. Associated signs and symptoms: Pertinent positives: pain, Pertinent negatives: anorexia, chills, dysphagia, fever, inability to eat, nausea, redness in area, swelling, vomiting. Severity of symptoms: At their worst the symptoms were moderate, in the emergency department the symptoms are unchanged. The patient has experienced similar episodes in the past. The patient has been recently seen at the [facility] Emergency Department, last week, for similar complaints was given a prescription for antibiotics, was given a prescription for pain medications. 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 - Social history:: Smoking status: Patient/guardian denies using tobacco. - Ebola Screening: : No symptoms or risks identified at this time. ROS: 18:03 Constitutional: Negative for fever, chills, and weight loss, Cardiovascular: Negative kb for chest pain, palpitations, and edema, Respiratory: Negative for shortness of breath, cough, wheezing, and pleuritic chest pain, Abdomen/GI: Negative for abdominal pain, nausea, vomiting, diarrhea, and constipation, MS/Extremity: Negative for injury and deformity, Skin: Negative for injury, rash, and discoloration, Neuro: Negative for headache, weakness, numbness, tingling, and seizure. 18:03 ENT: Positive for dental pain, Gum pain Exam: 18:13 Constitutional: This is a well developed, well nourished patient who is awake, alert, kb and in no acute distress. Head/Face: Normocephalic, atraumatic. Chest/axilla: Normal chest wall appearance and motion. Nontender with no deformity. No lesions are appreciated. Cardiovascular: Regular rate and rhythm with a normal S1 and S2. No gallops, murmurs, or rubs. Normal PMI, no JVD. No pulse deficits. Respiratory: Lungs have equal breath sounds bilaterally, clear to auscultation and percussion. No rales, rhonchi or wheezes noted. No increased work of breathing, no retractions or nasal flaring. Abdomen/GI: Soft, non-tender, with normal bowel sounds. No distension or tympany. No guarding or rebound. No evidence of tenderness throughout. Skin: Warm, dry with normal turgor. Normal color with no rashes, no lesions, and no evidence of cellulitis. MS/ Extremity: Pulses equal, no cyanosis. Neurovascular intact. Full, normal range of motion. Neuro: Awake and alert, GCS 15, oriented to person, place, time, and situation. Cranial nerves II-XII grossly intact. Motor strength 5/5 in all extremities. Sensory grossly intact. Cerebellar exam normal. Normal gait. 18:13 ENT: Dental exam: missing teeth, specifically the lower left first bicuspid (#21), pain, that is moderate, specifically in the lower left first bicuspid and lower left second bicuspid. Vital Signs: 16:16 BP 126 / 87; Pulse 89; Resp 16 S; Temp 98.0(TE); Pulse Ox 100% on R/A; Weight 58.97 kg aa5 (R); Height 5 ft. 5 in. (165.10 cm) (R); Pain 10/10; 16:16 Body Mass Index 21.63 (58.97 kg, 165.10 cm) aa5 MDM: 17:54 Patient medically screened. kb 18:04 Data reviewed: vital signs, nurses notes. Data interpreted: Pulse oximetry: on room air kb is 100 %. Interpretation: normal. 18:14 Counseling: I had a detailed discussion with the patient and/or guardian regarding: the kb historical points, exam findings, and any diagnostic results supporting the discharge/admit diagnosis, the need for outpatient follow up, a dentist, to return to the emergency department if symptoms worsen or persist or if there are any questions or concerns that arise at home. 18:14 ED course: Pt finished antibiotics for this problem 2-3 days ago. Took last Tylenol #3 kb and still has pain. Administered Medications: No medications were administered Disposition: 18:14 Toothache. kb 04/08 07:04 Co-signature as Attending Physician, Yovani Luna MD I agree with the assessment and royer plan of care. Disposition: 04/07/18 18:15 Discharged to Home. Impression: Encounter for screening, unspecified. - Condition is Stable. - Medication Reconciliation Form, Thank You Letter, Antibiotic Education, Prescription Opioid Use form. - Follow up: Emergency Department; When: As needed; Reason: Worsening of condition. Follow up: Private Physician; When: 2 - 3 days; Reason: Recheck today's complaints, Continuance of care, Re-evaluation by your physician. Signatures: Lissy Hernandez, OFFSET SECOND PRESS OPERATOR-C OFFSET SECOND PRESS OPERATOR-Yovani Moody MD MD cha Williams, Irene, ANDI RN Hue Medeiros RN RN aa5 Corrections: (The following items were deleted from the chart) 04/07 18:27 18:15 04/07/2018 18:15 Discharged to Home. Impression: Encounter for screening, iw unspecified. Condition is Stable. Forms are Medication Reconciliation Form, Thank You Letter, Antibiotic Education, Prescription Opioid Use. Follow up: Emergency Department; When: As needed; Reason: Worsening of condition. Follow up: Private Physician; When: 2 - 3 days; Reason: Recheck today's complaints, Continuance of care, Re-evaluation by your physician. kb
--- NOTE | 2018-04-07 18:16 | ER ---
Nurse's Notes [facility] Name: Trina Grimaldo Age: 33 yrs Sex: Female : 1985 Arrival Date: 04/07/2018 Time: 16:08 Bed 11 Private MD: Diagnosis: Encounter for screening, unspecified Presentation: 04/07 16:15 Presenting complaint: Patient states: "I've been having a toothache for about 2 weeks aa5 and I was seen here for it and I am done with the antibiotics and the Tylenol #3 and I had an appointment with the dentist but I had to miss it to pay my light bill". Transition of care: patient was not received from another setting of care. Onset of symptoms was April 2018. Risk Assessment: Do you want to hurt yourself or someone else? Patient reports no desire to harm self or others. Initial Sepsis Screen: Does the patient meet any 2 criteria? No. Patient's initial sepsis screen is negative. Does the patient have a suspected source of infection? No. Patient's initial sepsis screen is negative. Care prior to arrival: None. 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 - Social history:: Smoking status: Patient/guardian denies using tobacco. - Ebola Screening: : No symptoms or risks identified at this time. Screenin:11 Abuse screen: Denies threats or abuse. Denies injuries from another. Nutritional iw screening: No deficits noted. Tuberculosis screening: No symptoms or risk factors identified. Fall Risk None identified. Assessment: 18:10 General: Appears in no apparent distress. Behavior is calm, cooperative. Pain: iw Complains of pain in mouth and lower left first bicuspid and lower left second bicuspid. Neuro: Level of Consciousness is awake, alert, obeys commands, Oriented to person, place, time, situation, Moves all extremities. Full function. EENT: Reports pain. Vital Signs: 16:16 BP 126 / 87; Pulse 89; Resp 16 S; Temp 98.0(TE); Pulse Ox 100% on R/A; Weight 58.97 kg aa5 (R); Height 5 ft. 5 in. (165.10 cm) (R); Pain 10/10; 16:16 Body Mass Index 21.63 (58.97 kg, 165.10 cm) aa5 ED Course: 16:08 Patient arrived in ED. rg4 16:16 Triage completed. aa5 16:16 Arm band placed on. aa5 16:38 Nayana Ward FNP-C is PHCP. snw 16:38 Yovani Luna MD is Attending Physician. snw 17:52 Oxana David, RN is Primary Nurse. iw 17:53 Lissy Hernandez FNP-C is PHCP. kb 17:53 Yovani Luna MD is Attending Physician. kb 18:11 No provider procedures requiring assistance completed. Patient did not have IV access iw during this emergency room visit. Administered Medications: No medications were administered Outcome: 18:15 Discharge ordered by MD. kb 18:21 Discharged to home ambulatory. iw 18:27 Patient left the ED. iw Signatures: Lissy Hernandez FNP-C FNP-Ckb Nayana Ward FNP-C FNP-Csnw Oxana David, RN RN Hue Medeiros RN RN Dina Melissa rg4
== END 2018-04-07 18:27 | disposition home or self-care (01) ==
LOC: ER 16:06
DX: Z13.9 Encounter for screening, unspecified (principal)
CPT/HCPCS: 99281

== ENCOUNTER 2018-06-10 13:17 | Emergency (ER) | payer SELFPAY ==
--- OUTSIDE RECORDS SUMMARY | 2018-06-10 13:20 | XMS REPORT ---
:1985 [facility] Address [address] [place] [address] Care Team Providers Name Role Phone Unavailable Unavailable Unavailable Problems This patient has no known problems. Allergies, Adverse Reactions, Alerts This patient has no known allergies or adverse reactions. Medications This patient has no known medications. Encounters Start End Encounter Admission Attending Care Care Encounter Date/Time Date/Time Type Type Clinicians Facility Department ID 2017-03-13 2017-03-13 Outpatient [facility] [id number] 00:00:00 00:00:00 2017-03-10 2017-03-10 Outpatient [facility] [id number] 00:00:00 00:00:00 2017-03-06 2017-03-06 Outpatient [facility] [id number] 09:54:36 09:54:36
--- OUTSIDE RECORDS SUMMARY | 2018-06-10 13:20 | XMS REPORT | Clinical Summary ---
:1985 Author Organization [facility] Address [address] [place] [address] Care Team Providers Name Role Phone Asked, [...] Not on file Results Not on fileafter 06/09/2017 Insurance Payer Benefit Plan / Group Subscriber ID Type Phone Address [employer] [facility] xxxxxxxxx O
[2018-06-10 14:19] LABS: Urine Blood TRACE (NEG); Urine Glucose NEGATIVE (NEG); Urine Protein NEGATIVE (NEG); Urine pH 6.5 (5.0-7.0)
[2018-06-10] MEDS ORDERED: KETOROLAC 30 MG/ML INJ ONE (14:27)
[2018-06-10 14:40] LABS: Urine Bacteria 20-50 /HPF (<20); Urine Culture Reflex Order REFLEXED; Urine Mucus 2+ /HPF (NONE SEEN); Urine RBC NONE SEEN /HPF (NONE SEEN)
--- NOTE | 2018-06-10 14:48 | EDPHYS ---
Physician Documentation [facility] Name: Trina Grimaldo Age: 33 yrs Sex: Female : 1985 Arrival Date: 06/10/2018 Time: 13:18 Bed 26 Private MD: ED Physician Campbell Grove HPI: 06/10 14:27 This 33 yrs old Black Female presents to ER via Ambulatory with complaints of Urinary jr8 Problem, Flank Pain. 14:27 Patient stated that she has fowl smelling urine but without itching, burning, or jr8 vaginal complaints. Stated that her low and mid back hurt bilaterally. Worse with palpation and movement. Denies trauma . Severity of symptoms: At their worst the symptoms were mild in the emergency department the symptoms are unchanged. The patient has not experienced similar symptoms in the past. The patient has not recently seen a physician. 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 - Social history:: Smoking status: Patient/guardian denies using tobacco. - Ebola Screening: : No symptoms or risks identified at this time. ROS: 14:27 Eyes: Negative for injury, pain, redness, and discharge, ENT: Negative for injury, jr8 pain, and discharge, Neck: Negative for injury, pain, and swelling, Cardiovascular: Negative for chest pain, palpitations, and edema, Respiratory: Negative for shortness of breath, cough, wheezing, and pleuritic chest pain, Abdomen/GI: Negative for abdominal pain, nausea, vomiting, diarrhea, and constipation, MS/Extremity: Negative for injury and deformity, Skin: Negative for injury, rash, and discoloration, Neuro: Negative for headache, weakness, numbness, tingling, and seizure. 14:27 Back: Positive for pain at rest, pain with movement, of the left low back, left mid back, right mid back and right low back. Exam: 14:27 Eyes: Pupils equal round and reactive to light, extra-ocular motions intact. Lids and jr8 lashes normal. Conjunctiva and sclera are non-icteric and not injected. Cornea within normal limits. Periorbital areas with no swelling, redness, or edema. ENT: Nares patent. No nasal discharge, no septal abnormalities noted. Tympanic membranes are normal and external auditory canals are clear. Oropharynx with no redness, swelling, or masses, exudates, or evidence of obstruction, uvula midline. Mucous membranes moist. Neck: Trachea midline, no thyromegaly or masses palpated, and no cervical lymphadenopathy. Supple, full range of motion without nuchal rigidity, or vertebral point tenderness. No Meningismus. Cardiovascular: Regular rate and rhythm with a normal S1 and S2. No gallops, murmurs, or rubs. Normal PMI, no JVD. No pulse deficits. Respiratory: Lungs have equal breath sounds bilaterally, clear to auscultation and percussion. No rales, rhonchi or wheezes noted. No increased work of breathing, no retractions or nasal flaring. Abdomen/GI: Soft, non-tender, with normal bowel sounds. No distension or tympany. No guarding or rebound. No evidence of tenderness throughout. Skin: Warm, dry with normal turgor. Normal color with no rashes, no lesions, and no evidence of cellulitis. MS/ Extremity: Pulses equal, no cyanosis. Neurovascular intact. Full, normal range of motion. Neuro: Awake and alert, GCS 15, oriented to person, place, time, and situation. Cranial nerves II-XII grossly intact. Motor strength 5/5 in all extremities. Sensory grossly intact. Cerebellar exam normal. Normal gait. 14:27 Back: pain, that is moderate, of the left low back, left mid back, right mid back and right low back, ROM is painful, normal spinal alignment noted, CVA tenderness, is absent, muscle spasm, is appreciated in the left low back, left mid back, right mid back and right low back. Vital Signs: 13:31 BP 139 / 91; Pulse 104; Resp 16; Temp 97.8; Pulse Ox 100% on R/A; Pain 9/10; hb 13:55 BP 116 / 76 LA Sitting (auto/reg); Pulse 76; Resp 18; Pulse Ox 100% on R/A; Pain 8/10; jp3 14:28 BP 118 / 76; Pulse 77; Resp 16; Pulse Ox 100% ; kr2 15:05 BP 109 / 60; Pulse 70; Resp 16; Pulse Ox 99% ; kr2 MDM: 13:45 Patient medically screened. jr8 14:47 Data reviewed: vital signs, nurses notes, lab test result(s), and as a result, I will jr8 discharge patient. Data interpreted: Pulse oximetry: on room air is 100 %. Interpretation: normal. Counseling: I had a detailed discussion with the patient and/or guardian regarding: the historical points, exam findings, and any diagnostic results supporting the discharge/admit diagnosis, lab results, the need for outpatient follow up, a family practitioner, to return to the emergency department if symptoms worsen or persist or if there are any questions or concerns that arise at home. 06/10 13:52 Order name: Urine Microscopic Only hb 06/10 13:52 Order name: Urine Microscopic Only; Complete Time: 14:46 EDMS 06/10 14:01 Order name: Urine Dipstick--Ancillary (enter results); Complete Time: 14:21 gm 06/10 14:01 Order name: Urine --Ancillary (enter results); Complete Time: 14:21 gm 06/10 14:42 Order name: Urine Culture EDMS Administered Medications: 14:23 Drug: TORadol 60 mg Route: IM; Site: right gluteus; kr2 15:00 Follow up: Response: No adverse reaction; Pain is decreased kr2 Disposition: 16:27 Co-signature as Attending Physician, Campbell Grove MD I agree with the assessment and kdr plan of care. Disposition: 06/10/18 14:47 Discharged to Home. Impression: Low back pain, Urinary tract infection, site not specified. - Condition is Stable. - Discharge Instructions: Back Pain, Adult, Musculoskeletal Pain, Urinary Tract Infection, Adult, Heat Therapy. - Prescriptions for Ibuprofen 800 mg Oral Tablet - take 1 tablet by ORAL route every 12 hours As needed take with food; 20 tablet. Cyclobenzaprine 10 mg Oral Tablet - take 1 tablet by ORAL route every 8 hours As needed; 30 tablet. Macrobid 100 mg Oral Capsule - take 1 capsule by ORAL route every 12 hours for 7 days; 14 capsule. - Medication Reconciliation Form, Thank You Letter, Antibiotic Education, Prescription Opioid Use form. - Follow up: Private Physician; When: 1 week; Reason: Recheck today's complaints, Continuance of care, Re-evaluation by your physician. - Problem is new. - Symptoms have improved. Signatures: Dispatcher [employer] EDMS Campbell Grove MD MD kdr Roszak, Josh, PA PA jr8 Selma Lira RN RN Brittani Carrillo RN RN kr2 Corrections: (The following items were deleted from the chart) 15:10 14:47 06/10/2018 14:47 Discharged to Home. Impression: Low back pain; Urinary tract kr2 infection, site not specified. Condition is Stable. Forms are Medication Reconciliation Form, Thank You Letter, Antibiotic Education, Prescription Opioid Use. Follow up: Private Physician; When: 1 week; Reason: Recheck today's complaints, Continuance of care, Re-evaluation by your physician. Problem is new. Symptoms have improved. jr8
--- NOTE | 2018-06-10 14:48 | ER ---
Nurse's Notes [facility] Name: Trina Grimaldo Age: 33 yrs Sex: Female : 1985 Arrival Date: 06/10/2018 Time: 13:18 Bed 26 Private MD: Diagnosis: Low back pain;Urinary tract infection, site not specified Presentation: 06/10 13:30 Presenting complaint: Patient states: Bilateral flank pain, foul smelling urine, and hb cloudy urine x 1 week. Transition of care: patient was not received from another setting of care. Onset of symptoms was June 10, 2018. Risk Assessment: Do you want to hurt yourself or someone else? Patient reports no desire to harm self or others. Care prior to arrival: None. 13:30 Method Of Arrival: Ambulatory hb 13:30 Acuity: TRI 3 hb 13:40 Initial Sepsis Screen: Does the patient meet any 2 criteria? No. Patient's initial kr2 sepsis screen is negative. Does the patient have a suspected source of infection? No. Patient's initial sepsis screen is negative. 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 - Social history:: Smoking status: Patient/guardian denies using tobacco. - Ebola Screening: : No symptoms or risks identified at this time. Screenin:40 Abuse screen: Denies threats or abuse. Denies injuries from another. Nutritional kr2 screening: No deficits noted. Tuberculosis screening: No symptoms or risk factors identified. Fall Risk None identified. Assessment: 13:40 General: Appears in no apparent distress. uncomfortable, well groomed, well developed, kr2 well nourished, Behavior is calm, cooperative, appropriate for age. Pain: Complains of pain in right low back Pain does not radiate. Pain currently is 8 out of 10 on a pain scale. Quality of pain is described as aching, sharp, stabbing, Is continuous, Alleviated by rest. Neuro: No deficits noted. Cardiovascular: Capillary refill < 3 seconds in bilateral fingers Patient's skin is warm and dry. Respiratory: Airway is patent Respiratory effort is even, unlabored, Respiratory pattern is regular, symmetrical. GI: Abdomen is flat, non-distended, Bowel sounds present X 4 quads. Abd is soft and non tender X 4 quads. : Reports burning with urination. EENT: Oral mucosa is moist. Derm: Skin is intact, is healthy with good turgor, Skin is pink, warm \T\ dry. Musculoskeletal: Circulation, motion, and sensation intact. 14:30 Reassessment: Patient appears in no apparent distress at this time. Patient and/or kr2 family updated on plan of care and expected duration. Pain level reassessed. Patient is alert, oriented x 3, equal unlabored respirations, skin warm/dry/pink. 15:05 Reassessment: Patient appears in no apparent distress at this time. Patient and/or kr2 family updated on plan of care and expected duration. Pain level reassessed. Patient is alert, oriented x 3, equal unlabored respirations, skin warm/dry/pink. Patient states feeling better. Patient states symptoms have improved. Vital Signs: 13:31 BP 139 / 91; Pulse 104; Resp 16; Temp 97.8; Pulse Ox 100% on R/A; Pain 9/10; hb 13:55 BP 116 / 76 LA Sitting (auto/reg); Pulse 76; Resp 18; Pulse Ox 100% on R/A; Pain 8/10; jp3 14:28 BP 118 / 76; Pulse 77; Resp 16; Pulse Ox 100% ; kr2 15:05 BP 109 / 60; Pulse 70; Resp 16; Pulse Ox 99% ; kr2 ED Course: 13:18 Patient arrived in ED. as 13:31 Triage completed. hb 13:31 Arm band placed on right wrist. hb 13:35 Warm blanket given. Pillow given. jp3 13:40 Urine collected: clean catch specimen, clear, jolanta colored, Amount Voided: 80mL. jp3 13:40 No provider procedures requiring assistance completed. Patient did not have IV access kr2 during this emergency room visit. 13:45 Ronnie Martinez PA is PHCP. jr8 13:45 Campbell Grove MD is Attending Physician. jr8 13:56 Bed in low position. Call light in reach. Side rails up X 1. Pulse ox on. NIBP on. jp3 13:56 Urine Microscopic Only Sent. jp3 13:56 Urine Microscopic Only Sent. jp3 Administered Medications: 14:23 Drug: TORadol 60 mg Route: IM; Site: right gluteus; kr2 15:00 Follow up: Response: No adverse reaction; Pain is decreased kr2 Outcome: 14:47 Discharge ordered by . 8 15:09 Discharged to home ambulatory. kr2 15:09 Condition: good 15:09 Discharge instructions given to patient, Instructed on discharge instructions, follow up and referral plans. medication usage, Demonstrated understanding of instructions, follow-up care, medications, Prescriptions given X 3. 15:10 Patient left the ED. kr2 Signatures: Nubia Tucker Josh, PA PA jr8 Selma Lira, ANDI RN Brittani Carrillo RN RN kr2 Rip Jackson jp3
== END 2018-06-10 15:10 | disposition home or self-care (01) ==
LOC: ER 13:17
DX: N39.0 Urinary tract infection, site not specified (principal)
CPT/HCPCS: 81003; 81015; 81025; 87086; 87088; 96372; 99284

== ENCOUNTER 2018-07-18 13:37 | Emergency (ER) | payer SELFPAY ==
--- OUTSIDE RECORDS SUMMARY | 2018-07-18 13:39 | XMS REPORT ---
:1985 [facility] Address [address] [place] [address] Care Team Providers Name Role Phone Unavailable Unavailable Unavailable Problems This patient has no known problems. Allergies, Adverse Reactions, Alerts This patient has no known allergies or adverse reactions. Medications This patient has no known medications. Encounters Start End Encounter Admission Attending Care Care Encounter Date/Time Date/Time Type Type Clinicians Facility Department ID 2017-03-13 2017-03-13 Outpatient [facility] [id number] 00:00:00 00:00:00 2017-03-10 2017-03-10 Outpatient [facility] [id number] 00:00:00 00:00:00 2017-03-06 2017-03-06 Outpatient [facility] [id number] 09:54:36 09:54:36
--- OUTSIDE RECORDS SUMMARY | 2018-07-18 13:39 | XMS REPORT | Clinical Summary ---
:1985 Author Organization [facility] Address [address] [place] [address] Care Team Providers Name Role Phone Asked, No Pcp Primary Care Provider Unavailable Allergies No Known Allergies Medications No known medications Active Problems Not on file Social History Tobacco Use Types Packs/Day Years Used Date Never Smoker Alcohol Use Drinks/Week oz/Week Comments No Sex Assigned at Date Recorded Not on file Job Start Date Occupation Industry Not on file Not on file Not on file Travel History Travel Start Travel End No recent travel history available. Last Filed Vital Signs Not on file Plan of Treatment Not on file Results Not on fileafter 07/17/2017 Insurance Payer Benefit Plan / Group Subscriber ID Type Phone Address [employer] xxxxxxxxx HMO Advance Directives Patient has advance care planning documents on file. For more information, please contact:[address] [address]
--- NOTE | 2018-07-18 14:30 | EDPHYS ---
Physician Documentation [facility] Name: Trina Grimaldo Age: 33 yrs Sex: Female : 1985 Arrival Date: 07/18/2018 Time: 13:39 Bed 13 Private MD: None, None ED Physician Driss Kaur HPI: 07/18 14:00 This 33 yrs old Black Female presents to ER via Ambulatory with complaints of cp Toothache, Vomiting. 14:00 The patient presents with pain. The problem is located in the left lower jaw. Onset: cp The symptoms/episode began/occurred 2 day(s) ago. Duration: The symptoms are continuous, and are steadily getting worse. Associated signs and symptoms: Pertinent positives: nausea, vomiting, Pertinent negatives: fever, inability to eat, swelling, facial. Severity of symptoms: in the emergency department the symptoms are unchanged, despite home interventions. 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 - Social history:: Smoking status: Patient/guardian denies using tobacco, Patient/guardian denies using alcohol. - Ebola Screening: : Patient negative for fever greater than or equal to 101.5 degrees Fahrenheit, and additional compatible Ebola Virus Disease symptoms Patient denies exposure to infectious person Patient denies travel to an Ebola-affected area in the 21 days before illness onset. ROS: 14:05 Constitutional: Negative for body aches, chills, fever, poor PO intake. cp 14:05 Eyes: Negative for injury, pain, redness, and discharge. cp 14:05 ENT: Positive for dental pain, Negative for drainage from ear(s), ear pain, sinus pain, sore throat, difficulty swallowing, difficulty handling secretions. 14:05 Neck: Negative for pain with movement, pain at rest, stiffness. 14:05 Cardiovascular: Negative for chest pain, edema, palpitations. 14:05 Respiratory: Negative for cough, shortness of breath, wheezing. 14:05 Abdomen/GI: Positive for nausea, vomiting, Negative for abdominal pain, diarrhea, constipation, hematemesis, black/tarry stool, rectal bleeding. 14:05 : Negative for urinary symptoms, flank pain, vaginal bleeding, vaginal discharge. 14:05 Skin: Negative for cellulitis, rash. 14:05 Neuro: Negative for altered mental status, headache, weakness. 14:05 All other systems are negative. Exam: 14:10 Constitutional: The patient appears in no acute distress, alert, awake, non-toxic, well cp developed, well nourished, uncomfortable. 14:10 Head/Face: Normocephalic, atraumatic. cp 14:10 Eyes: Periorbital structures: appear normal, Pupils: equal, round, and reactive to light and accomodation, Extraocular movements: intact throughout, Conjunctiva: normal, no exudate, no injection, Sclera: no appreciated abnormality, Lids and lashes: appear normal, bilaterally. 14:10 ENT: External ear(s): are unremarkable, Ear canal(s): are normal, clear, TM's: bulging, is not appreciated, bilaterally, dullness, bilaterally, erythema, is not appreciated, bilaterally, Nose: is normal, Mouth: Lips: moist, Oral mucosa: pink and intact, moist, Tongue: is normal, abscess, is not appreciated, Posterior pharynx: Airway: no evidence of obstruction, patent, Tonsils: are normal in appearance, Uvula: midline, swelling, is not appreciated, erythema, is not appreciated, exudate, is not appreciated, Dental exam: abscess, is not appreciated, dental caries, that is moderate, diffusely, fractured teeth are noted, diffusely, gum swelling, that is mild, diffusely, pain, that is moderate, specifically in the lower left third molar (#17), lower left second molar (#18) and lower left second bicuspid (#20), Voice: is normal. 14:10 Neck: ROM/movement: is normal, is supple, without pain, no range of motions limitations, no meningismus, no nuchal rigidity. 14:10 Chest/axilla: Inspection: normal, Palpation: is normal, no crepitus, no tenderness. 14:10 Cardiovascular: Rate: normal, Rhythm: regular. 14:10 Respiratory: the patient does not display signs of respiratory distress, Respirations: normal, no use of accessory muscles, no retractions, no splinting, no tachypnea, labored breathing, is not present, Breath sounds: are clear throughout, no decreased breath sounds, no stridor, no wheezing. 14:10 Abdomen/GI: Inspection: abdomen appears normal, Palpation: abdomen is soft and non-tender, in all quadrants, rebound tenderness, is not appreciated, involuntary guarding, is not appreciated. 14:10 Skin: cellulitis, is not appreciated, no rash present. Vital Signs: 13:43 BP 133 / 89; Pulse 87; Resp 18; Temp 99.2(O); Pulse Ox 100% on R/A; Weight 58.97 kg; hj Height 5 ft. 5 in. (165.10 cm); Pain 10/10; 13:43 Body Mass Index 21.63 (58.97 kg, 165.10 cm) hj MDM: 13:49 Patient medically screened. cp 14:30 Data reviewed: vital signs, nurses notes, lab test result(s). cp 14:30 Differential diagnosis: dental caries, dental abscess, cellulitis. Counseling: I had a cp detailed discussion with the patient and/or guardian regarding: the historical points, exam findings, and any diagnostic results supporting the discharge/admit diagnosis, the need for outpatient follow up, for definitive care, a dentist, to return to the emergency department if symptoms worsen or persist or if there are any questions or concerns that arise at home. 07/18 14:35 Order name: Urine Dipstick--Ancillary (enter results) [facility] 07/18 14:35 Order name: Urine --Ancillary (enter results) [facility] 07/18 14:52 Order name: Urine --Ancillary [facility] 07/18 14:52 Order name: Urine Dipstick-Ancillary [facility] 07/18 13:58 Order name: Urine Dipstick-Ancillary (obtain specimen); Complete Time: 14:58 cp 07/18 13:58 Order name: Urine Test (obtain specimen); Complete Time: 14:58 cp Administered Medications: 14:32 Drug: Tylenol #3 (300 mg-30 mg) 2 tabs Route: PO; rb1 14:55 Follow up: Response: No adverse reaction; Pain is decreased rb1 14:32 Drug: Zofran 4 mg Route: PO; rb1 14:55 Follow up: Response: No adverse reaction rb1 Disposition: 07/18/18 14:30 Discharged to Home. Impression: Jaw pain - Left Lower. - Condition is Stable. - Discharge Instructions: Dental Caries, Adult, Dental Pain. - Prescriptions for Amoxicillin 875 mg Oral Tablet - take 1 tablet by ORAL route every 12 hours for 10 days; 20 tablet. Tylenol- Codeine #3 300-30 mg Oral Tablet - take 2 tablets by ORAL route every 6 hours As needed; 15 tablet. Zofran 4 mg Oral Tablet - take 1 tablet by ORAL route every 12 hours As needed; 20 tablet. - Medication Reconciliation Form, Thank You Letter, Antibiotic Education, Prescription Opioid Use, Work release form form. - Follow up: Christo Navarro DDS; When: 2 - 3 days; Reason: Recheck today's complaints. - Problem is new. - Symptoms have improved. Addendum: 07/19/2018 16:25 Co-signature as Attending Physician, Driss Kaur MD. g s Signatures: Dispatcher [employer] EDMS Joel Logan RN RN Yvoani Painter PA PA Jaja Lockhart, RN RN rb1 Driss Kaur MD MD Corrections: (The following items were deleted from the chart) 07/18 15:10 14:30 07/18/2018 14:30 Discharged to Home. Impression: Jaw pain - Left Lower. Condition rb1 is Stable. Forms are Medication Reconciliation Form, Thank You Letter, Antibiotic Education, Prescription Opioid Use. Follow up: Christo Navarro; When: 2 - 3 days; Reason: Recheck today's complaints. Problem is new. Symptoms have improved. cp
--- NOTE | 2018-07-18 14:30 | ER ---
Nurse's Notes [facility] Name: Trina Grimaldo Age: 33 yrs Sex: Female : 1985 Arrival Date: 07/18/2018 Time: 13:39 Bed 13 Private MD: None, None Diagnosis: Jaw pain-Left Lower Presentation: 07/18 13:40 Presenting complaint: Patient states: nicole been throwing up for 2 days and i have a hj tooth ache; took tylenol this AM;. Transition of care: patient was not received from another setting of care. Onset of symptoms was July 18, 2018. Risk Assessment: Do you want to hurt yourself or someone else? Patient reports no desire to harm self or others. Initial Sepsis Screen: Does the patient meet any 2 criteria? No. Patient's initial sepsis screen is negative. Does the patient have a suspected source of infection? No. Patient's initial sepsis screen is negative. Care prior to arrival: None. 13:40 Method Of Arrival: Ambulatory 13:40 Acuity: TRI 4 hj Triage Assessment: 13:42 General: Appears in no apparent distress. uncomfortable, Behavior is calm, cooperative, hj appropriate for age. Pain: Complains of pain in L lower tooth Pain currently is 10 out of 10 on a pain scale. EENT: Reports pain. 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 - Social history:: Smoking status: Patient/guardian denies using tobacco, Patient/guardian denies using alcohol. - Ebola Screening: : Patient negative for fever greater than or equal to 101.5 degrees Fahrenheit, and additional compatible Ebola Virus Disease symptoms Patient denies exposure to infectious person Patient denies travel to an Ebola-affected area in the 21 days before illness onset. Screenin:41 Abuse screen: Denies threats or abuse. Denies injuries from another. Nutritional hj screening: No deficits noted. Tuberculosis screening: No symptoms or risk factors identified. Fall Risk None identified. Assessment: 13:48 General: Appears uncomfortable, Behavior is calm, cooperative. Pain: Complains of pain rb1 in left lower jaw Pain currently is 10 out of 10 on a pain scale. Pain began 2-3 days ago. Neuro: Level of Consciousness is awake, alert, obeys commands, Oriented to person, place, time, situation. Cardiovascular: Capillary refill < 3 seconds is brisk in bilateral fingers. Respiratory: Airway is patent Respiratory effort is even, unlabored, Respiratory pattern is regular, symmetrical. GI: No signs and/or symptoms were reported involving the gastrointestinal system. : No signs and/or symptoms were reported regarding the genitourinary system. Derm: Skin is dry, Skin is normal, Skin temperature is warm. 14:43 Reassessment: Patient appears in no apparent distress at this time. Patient and/or rb1 family updated on plan of care and expected duration. Pain level reassessed. Patient is alert, oriented x 3, equal unlabored respirations, skin warm/dry/pink. Vital Signs: 13:43 BP 133 / 89; Pulse 87; Resp 18; Temp 99.2(O); Pulse Ox 100% on R/A; Weight 58.97 kg; hj Height 5 ft. 5 in. (165.10 cm); Pain 10/10; 13:43 Body Mass Index 21.63 (58.97 kg, 165.10 cm) ED Course: 13:39 Patient arrived in ED. sb2 13:40 None, None is Private Physician. sb2 13:41 Triage completed. hj 13:42 Arm band placed on right wrist. hj 13:43 Patient has correct armband on for positive identification. Bed in low position. Call hj light in reach. Side rails up X 1. 13:49 Yovani Painter PA is PHCP. cp 13:49 Driss Kaur MD is Attending Physician. cp 13:56 Jaja Villanueva, ANDI is Primary Nurse. rb1 14:29 Christo Navarro DDS is Referral Physician. cp 14:43 Pulse ox on. NIBP on. rb1 15:00 No provider procedures requiring assistance completed. Patient did not have IV access rb1 during this emergency room visit. Administered Medications: 14:32 Drug: Tylenol #3 (300 mg-30 mg) 2 tabs Route: PO; rb1 14:55 Follow up: Response: No adverse reaction; Pain is decreased rb1 14:32 Drug: Zofran 4 mg Route: PO; rb1 14:55 Follow up: Response: No adverse reaction rb1 Outcome: 14:30 Discharge ordered by . cp 15:00 Patient left the ED. rb1 15:00 Discharged to home ambulatory. rb1 15:00 Condition: stable 15:00 Discharge instructions given to patient, Instructed on discharge instructions, follow up and referral plans. medication usage, Demonstrated understanding of instructions, follow-up care, medications, Prescriptions given X 3. Signatures: Joel Logan RN RN Yovani Painter PA PA cp Barber, Rebecca, RN RN rb1 Sandrita Sanchez sb2 Corrections: (The following items were deleted from the chart) 13:44 13:43 Pulse 87bpm; Resp 18bpm; Pulse Ox 100% RA; Temp 99.2F Oral; 58.97 kg; Height 5 hj ft. 5 in.; BMI: 21.6; Pain 10/10; hj 16:00 15:10 Patient left the ED. rb1 rb1
[2018-07-18] MEDS ORDERED: CODEINE 30MG/APAP 300MG TAB ONE (14:38)
[2018-07-18] MEDS ORDERED: ONDANSETRON 4 MG (ODT) TAB ONE (14:39)
[2018-07-18 14:52] LABS: Urine Blood TRACE (NEG); Urine Glucose NEGATIVE (NEG); Urine Protein NEGATIVE (NEG)
== END 2018-07-18 15:10 | disposition home or self-care (01) ==
LOC: ER 13:37
DX: R68.84 Jaw pain (principal); R11.2 Nausea with vomiting, unspecified
CPT/HCPCS: 81003; 81025; 99283

== ENCOUNTER 2018-09-08 14:47 | Emergency (ER) | payer SELFPAY ==
--- OUTSIDE RECORDS SUMMARY | 2018-09-08 14:49 | XMS REPORT | Clinical Summary ---
:1985 [facility] [address] [place] [address] Care Team Providers Name Role Phone Asked, [...] Not on file Results Not on fileafter 09/07/2017 Insurance Payer Benefit Plan / Group Subscriber ID Type Phone Address [employer] xxxxxxxxx HMO Advance Directives Patient has advance care planning documents on file. For more information, please contact:[address] [address]
--- OUTSIDE RECORDS SUMMARY | 2018-09-08 14:49 | XMS REPORT ---
:1985 [facility] Address [address] [place] [address] Care Team Providers Name Role Phone Unavailable Unavailable Unavailable Problems This patient has no known problems. Allergies, Adverse Reactions, Alerts This patient has no known allergies or adverse reactions. Medications This patient has no known medications. Encounters Start End Encounter Admission Attending Care Care Encounter Date/Time Date/Time Type Type Clinicians Facility Department ID 2017-03-13 2017-03-13 Outpatient [facility] [id number] 00:00:00 00:00:00 2017-03-10 2017-03-10 Outpatient [facility] [id number] 00:00:00 00:00:00 2017-03-06 2017-03-06 Outpatient [facility] [id number] 09:54:36 09:54:36
--- NOTE | 2018-09-08 17:18 | ER ---
Nurse's Notes [facility] Name: Trina Grimaldo Age: 33 yrs Sex: Female : 1985 Arrival Date: 09/08/2018 Time: 14:49 Bed DIS1 Private MD: Diagnosis: Encounter for screening, unspecified Presentation: 09/08 15:45 Presenting complaint: Patient states: generalized abd cramping on and off and cloudy aa5 urine that began 1 week ago. Pt denies burning with urination. Transition of care: patient was not received from another setting of care. Onset of symptoms was September 2018. Risk Assessment: Do you want to hurt yourself or someone else? Patient reports no desire to harm self or others. Initial Sepsis Screen: Does the patient meet any 2 criteria? No. Patient's initial sepsis screen is negative. Does the patient have a suspected source of infection? No. Patient's initial sepsis screen is negative. Care prior to arrival: None. 15:45 Method Of Arrival: Ambulatory aa5 15:45 Acuity: TRI 3 aa5 Triage Assessment: 17:00 General: Appears in no apparent distress. Behavior is calm, cooperative. 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 - Social history:: Smoking status: Patient/guardian denies using tobacco. - Ebola Screening: : No symptoms or risks identified at this time. Screenin:30 Abuse screen: Denies threats or abuse. Denies injuries from another. Nutritional iw screening: No deficits noted. Tuberculosis screening: No symptoms or risk factors identified. Fall Risk None identified. Assessment: 17:00 General: Appears in no apparent distress. Behavior is calm, cooperative. Pain: iw Complains of pain in suprapubic area. Neuro: Level of Consciousness is awake, alert, obeys commands, Oriented to person, place, time, situation. Cardiovascular: Patient's skin is warm and dry. Respiratory: Respiratory effort is even, unlabored, Respiratory pattern is regular. GI: Bowel sounds present X 4 quads. Abd is soft and non tender X 4 quads. Derm: Skin is intact, is healthy with good turgor. Musculoskeletal: Range of motion: intact in all extremities. Vital Signs: 15:47 BP 116 / 78; Pulse 80; Resp 18 S; Temp 97.5(TE); Pulse Ox 100% on R/A; Weight 54.43 kg aa5 (R); Height 5 ft. 5 in. (165.10 cm) (R); Pain 0/10; 15:47 Body Mass Index 19.97 (54.43 kg, 165.10 cm) aa5 ED Course: 14:49 Patient arrived in ED. rg4 15:46 Triage completed. aa5 15:46 Arm band placed on. aa5 16:45 Oxana David RN is Primary Nurse. iw 16:55 Hilario Salvador PA is PHCP. [facility] 16:55 Dani Wu MD is Attending Physician. [facility] 17:00 Patient has correct armband on for positive identification. iw 17:11 Nayana Ward FNP-C is PHCP. sn 17:11 Dani Wu MD is Attending Physician. [facility] 17:12 Urine collected: clean catch specimen, cloudy. [facility] 17:12 Urine --Ancillary (enter results) Sent. [facility] 17:12 Urine Dipstick--Ancillary (enter results) Sent. [facility] 17:12 Urine Culture Sent. [facility] 17:12 Urine Microscopic Only Sent. [facility] 17:36 No provider procedures requiring assistance completed. Patient did not have IV access iw during this emergency room visit. Administered Medications: No medications were administered Outcome: 17:17 Discharge ordered by . [facility] 17:36 Discharged to home ambulatory, with family. 17:36 Condition: good 17:36 Discharge instructions given to patient, Instructed on discharge instructions, follow up and referral plans. medication usage, Demonstrated understanding of instructions, follow-up care, medications, Prescriptions given X 1. 17:37 Patient left the ED. Signatures: Nayana Ward FNP-C AG SERVICE MANAGER-[employer] Hilario Salvador PA PA jmm Williams, Irene, RN RN Hue Lewis RN RN [facility] Dina Freire [facility] Opal Tucker [facility]
--- NOTE | 2018-09-08 17:18 | EDPHYS ---
Physician Documentation [facility] Name: Trina Grimaldo Age: 33 yrs Sex: Female : 1985 Arrival Date: 09/08/2018 Time: 14:49 Bed DIS1 Private MD: ED Physician Dani Wu HPI: 09/08 17:15 This 33 yrs old Black Female presents to ER via Ambulatory with complaints of Abdominal snw Cramping. 17:15 The patient presents with cramping to lower abd occasionally, LMP 2 weeks ago, notes snw cloudy urine without dysuria. Onset: The symptoms/episode began/occurred 1 week(s) ago, and became persistent. The symptoms do not radiate. Associated signs and symptoms: none. The symptoms are described as crampy. Severity of pain: At its worst the pain was very mild. It is unknown whether or not the patient has had similar symptoms in the past. It is unknown whether or not the patient has recently seen a physician. Daughter in ED being seen today, dx with Flu A. Pt with hx of Sjorgren's. Will give prophylaxis . 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 - Social history:: Smoking status: Patient/guardian denies using tobacco. - Ebola Screening: : No symptoms or risks identified at this time. ROS: 17:14 Constitutional: Negative for fever, chills, and weight loss, Eyes: Negative for injury, snw pain, redness, and discharge, ENT: Negative for injury, pain, and discharge, Neck: Negative for injury, pain, and swelling, Cardiovascular: Negative for chest pain, palpitations, and edema, Respiratory: Negative for shortness of breath, cough, wheezing, and pleuritic chest pain, Back: Negative for injury and pain, : Negative for injury, bleeding, discharge, and swelling, MS/Extremity: Negative for injury and deformity, Skin: Negative for injury, rash, and discoloration, Neuro: Negative for headache, weakness, numbness, tingling, and seizure. 17:14 Abdomen/GI: Positive for cloudy urine without dysuria, occasional abd cramping. Exam: 17:14 Constitutional: This is a well developed, well nourished patient who is awake, alert, snw and in no acute distress. Head/Face: Normocephalic, atraumatic. Eyes: Pupils equal round and reactive to light, extra-ocular motions intact. Lids and lashes normal. Conjunctiva and sclera are non-icteric and not injected. Cornea within normal limits. Periorbital areas with no swelling, redness, or edema. ENT: Nares patent. No nasal discharge, no septal abnormalities noted. Tympanic membranes are normal and external auditory canals are clear. Oropharynx with no redness, swelling, or masses, exudates, or evidence of obstruction, uvula midline. Mucous membranes moist. Neck: Trachea midline, no thyromegaly or masses palpated, and no cervical lymphadenopathy. Supple, full range of motion without nuchal rigidity, or vertebral point tenderness. No Meningismus. Chest/axilla: Normal chest wall appearance and motion. Nontender with no deformity. No lesions are appreciated. Cardiovascular: Regular rate and rhythm with a normal S1 and S2. No gallops, murmurs, or rubs. Normal PMI, no JVD. No pulse deficits. Respiratory: Lungs have equal breath sounds bilaterally, clear to auscultation and percussion. No rales, rhonchi or wheezes noted. No increased work of breathing, no retractions or nasal flaring. Abdomen/GI: Soft, non-tender, with normal bowel sounds. No distension or tympany. No guarding or rebound. No evidence of tenderness throughout. Back: No spinal tenderness. No costovertebral tenderness. Full range of motion. Skin: Warm, dry with normal turgor. Normal color with no rashes, no lesions, and no evidence of cellulitis. MS/ Extremity: Pulses equal, no cyanosis. Neurovascular intact. Full, normal range of motion. Neuro: Awake and alert, GCS 15, oriented to person, place, time, and situation. Cranial nerves II-XII grossly intact. Motor strength 5/5 in all extremities. Sensory grossly intact. Cerebellar exam normal. Normal gait. Vital Signs: 15:47 BP 116 / 78; Pulse 80; Resp 18 S; Temp 97.5(TE); Pulse Ox 100% on R/A; Weight 54.43 kg aa5 (R); Height 5 ft. 5 in. (165.10 cm) (R); Pain 0/10; 15:47 Body Mass Index 19.97 (54.43 kg, 165.10 cm) aa5 MDM: 17:11 Patient medically screened. snw 17:19 Data reviewed: vital signs, nurses notes. Data interpreted: Pulse oximetry: on room air snw is 100 %. Interpretation: normal. Counseling: I had a detailed discussion with the patient and/or guardian regarding: the historical points, exam findings, and any diagnostic results supporting the discharge/admit diagnosis, lab results, the need for outpatient follow up, to return to the emergency department if symptoms worsen or persist or if there are any questions or concerns that arise at home. Special discussion: Based on the history and exam findings, there is no indication for further emergent testing or inpatient evaluation. I discussed with the patient/guardian the need to see the OB Gyne specialist for further evaluation of the symptoms. I discussed with the patient/guardian the need to see the primary care provider for further evaluation of the symptoms. 09/08 15:12 Order name: Urine Culture snw 09/08 15:12 Order name: Urine Microscopic Only; Complete Time: 17:32 snw 09/08 15:12 Order name: Urine Test (obtain specimen); Complete Time: 17:12 snw 09/08 15:12 Order name: Urine Dipstick-Ancillary (obtain specimen); Complete Time: 16:54 snw 09/08 17:04 Order name: Urine Dipstick--Ancillary (enter results); Complete Time: 17:32 bd 09/08 17:04 Order name: Urine --Ancillary (enter results); Complete Time: 17:32 bd Administered Medications: No medications were administered Disposition: 18:20 Co-signature as Attending Physician, Dani Wu MD. rn Disposition: 09/08/18 17:17 Discharged to Home. Impression: Encounter for screening, unspecified. - Condition is Stable. - Discharge Instructions: Rehydration, Adult. - Prescriptions for Tamiflu 75 mg Oral Capsule - take 1 tablet by ORAL route once daily for 10 days; 10 tablet. Macrobid 100 mg Oral Capsule - take 1 capsule by ORAL route every 12 hours for 10 days; 20 capsule. - Medication Reconciliation Form, Thank You Letter, Antibiotic Education, Prescription Opioid Use form. - Follow up: Private Physician; When: 2 - 3 days; Reason: Recheck today's complaints, Continuance of care, Re-evaluation by your physician. Follow up: Emergency Department; When: As needed; Reason: Worsening of condition. Signatures: Dispatcher [employer] EDMS EdNayana awan, BACKGROUND CHECK COORDINATOR-C BACKGROUND CHECK COORDINATOR-Csnw Oxana David RN RN iw Dani Wu MD MD rn Calderon, Audri, RN RN aa5 Corrections: (The following items were deleted from the chart) 17:37 17:17 09/08/2018 17:17 Discharged to Home. Impression: Encounter for screening, iw unspecified. Condition is Stable. Forms are Medication Reconciliation Form, Thank You Letter, Antibiotic Education, Prescription Opioid Use. Follow up: Private Physician; When: 2 - 3 days; Reason: Recheck today's complaints, Continuance of care, Re-evaluation by your physician. Follow up: Emergency Department; When: As needed; Reason: Worsening of condition. snw
[2018-09-08 17:29] LABS: Urine Blood NEGATIVE (NEG); Urine Glucose NEGATIVE (NEG); Urine Protein NEGATIVE (NEG); Urine Specific Gravity 1.025 (1.005-1.030)
[2018-09-08 17:31] LABS: Urine Amorphous Sediment 1+ /HPF (NONE SEEN); Urine Bacteria 20-50 /HPF (<20); Urine Culture Reflex Order NOT NEEDED; Urine RBC <5 /HPF (NONE SEEN)
== END 2018-09-08 17:37 | disposition home or self-care (01) ==
LOC: ER 14:47
DX: Z13.9 Encounter for screening, unspecified (principal)
CPT/HCPCS: 81003; 81015; 81025; 87086; 87088; 99283

== ENCOUNTER 2018-11-04 11:36 | Emergency (ER) | payer SELFPAY ==
--- OUTSIDE RECORDS SUMMARY | 2018-11-04 11:39 | XMS REPORT | Clinical Summary ---
:1985 Author Organization [facility] Address [address] [place] [address] Care Team Providers Name Role Phone Asked, [...] Not on file Results Not on fileafter 11/03/2017 Insurance Payer Benefit Plan / Group Subscriber ID Type Phone Address [employer] xxxxxxxxx HMO Advance Directives Patient has advance care planning documents on file. For more information, please contact:[address] [address]
--- OUTSIDE RECORDS SUMMARY | 2018-11-04 11:39 | XMS REPORT ---
:1985 [facility] Address [address] [place] [address] Care Team Providers Name Role Phone Unavailable Unavailable Unavailable Problems This patient has no known problems. Allergies, Adverse Reactions, Alerts This patient has no known allergies or adverse reactions. Medications This patient has no known medications. Encounters Start End Encounter Admission Attending Care Care Encounter Date/Time Date/Time Type Type Clinicians Facility Department ID 2017-03-13 2017-03-13 Outpatient [facility] [id number] 00:00:00 00:00:00 2017-03-10 2017-03-10 Outpatient [facility] [id number] 00:00:00 00:00:00 2017-03-06 2017-03-06 Outpatient [facility] [id number] 09:54:36 09:54:36
[2018-11-04 12:29] LABS: Urine Amorphous Sediment 1+ /HPF (NONE SEEN); Urine Bacteria 20-50 /HPF (<20); Urine Culture Reflex Order REFLEXED; Urine Mucus 1+ /HPF (NONE SEEN); Urine RBC <5 /HPF (NONE SEEN)
[2018-11-04 12:34] LABS: Urine Blood NEGATIVE (NEG); Urine Glucose NEGATIVE (NEG); Urine Protein NEGATIVE (NEG)
--- NOTE | 2018-11-04 12:34 | EDPHYS ---
Physician Documentation [facility] Name: Trina Grimaldo Age: 33 yrs Sex: Female : 1985 Arrival Date: 11/04/2018 Time: 11:37 Bed 19 Private MD: None, None ED Physician Dani Wu HPI: 11/04 12:29 This 33 yrs old Black Female presents to ER via Ambulatory with complaints of PAIN IN rn RIGHT SIDE. 12:29 The patient presents with urinary symptoms, dysuria, frequency, urgency. Onset: The rn symptoms/episode began/occurred 1 week(s) ago. Modifying factors: The symptoms are alleviated by nothing, the symptoms are aggravated by urinating. Associated signs and symptoms: Pertinent positives: dysuria, urinary frequency. Severity of symptoms: At their worst the symptoms were mild, in the emergency department the symptoms are unchanged. The patient has not experienced similar symptoms in the past. REports 1 week of dysuria, increased frequency, urine smells different, right kidney pain, no fever/chills. No abd pain or hematuria. . 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 - Social history:: Smoking status: Patient/guardian denies using tobacco. - Ebola Screening: : Patient denies exposure to infectious person Patient denies travel to an Ebola-affected area in the 21 days before illness onset. - Family history:: not pertinent. - Hospitalizations: : No recent hospitalization is reported. ROS: 12:29 Constitutional: Negative for fever, chills, and weight loss, Cardiovascular: Negative rn for chest pain, palpitations, and edema, Respiratory: Negative for shortness of breath, cough, wheezing, and pleuritic chest pain, Abdomen/GI: Negative for abdominal pain, nausea, vomiting, diarrhea, and constipation, Back: + right flank pain : + dysuria and frequency MS/Extremity: Negative for injury and deformity, Skin: Negative for injury, rash, and discoloration, Neuro: Negative for headache, weakness, numbness, tingling, and seizure. Exam: 12:29 Constitutional: This is a well developed, well nourished patient who is awake, alert, rn and in no acute distress. Head/Face: Normocephalic, atraumatic. Eyes: Mild erythema right sclera ENT: MMM Abdomen/GI: soft, non-tender, no rebound, neg nicole Back: No spinal tenderness. No costovertebral tenderness. Full range of motion. Skin: Warm, dry with normal turgor. Normal color with no rashes, no lesions, and no evidence of cellulitis. MS/ Extremity: Pulses equal, no cyanosis. Neurovascular intact. Full, normal range of motion. Equal circumference. Neuro: Awake and alert, GCS 15, oriented to person, place, time, and situation. Cranial nerves II-XII grossly intact. Motor strength 5/5 in all extremities. Sensory grossly intact. Cerebellar exam normal. Normal gait. Vital Signs: 11:48 BP 128 / 91; Pulse 86; Resp 16; Temp 97.8(TE); Pulse Ox 99% on R/A; Weight 58.97 kg; ss Height 5 ft. 5 in. (165.10 cm); Pain 9/10; 12:42 BP 121 / 85; Pulse 89; Resp 16; Pulse Ox 99% ; bp 11:48 Body Mass Index 21.63 (58.97 kg, 165.10 cm) ss MDM: 11:54 Patient medically screened. rn 12:32 Differential diagnosis: urinary tract infection. Data reviewed: vital signs, nurses rn notes, lab test result(s), urinalysis, UPT: negative and as a result, I will discharge patient. Counseling: I had a detailed discussion with the patient and/or guardian regarding: the historical points, exam findings, and any diagnostic results supporting the discharge/admit diagnosis, lab results, the need for outpatient follow up, to return to the emergency department if symptoms worsen or persist or if there are any questions or concerns that arise at home. Special discussion: I discussed with the patient/guardian in detail that at this point there is no indication for admission to the hospital. It is understood, however, that if the symptoms persist or worsen the patient needs to return immediately for re-evaluation. 11/04 11:54 Order name: Urine Microscopic Only rn 11/04 11:54 Order name: Urine Microscopic Only bp 11/04 11:55 Order name: Urine Microscopic Only EDOR 11/04 12:07 Order name: Urine Dipstick--Ancillary (enter results) eb 11/04 12:07 Order name: Urine --Ancillary (enter results) eb 11/04 12:31 Order name: Urine Culture EDOR 11/04 11:54 Order name: Urine Test (obtain specimen); Complete Time: 12:05 rn 11/04 11:54 Order name: Urine Dipstick-Ancillary (obtain specimen); Complete Time: 12:05 rn 11/04 11:54 Order name: Urine Dipstick-Ancillary (obtain specimen); Complete Time: 12:05 bp 11/04 11:54 Order name: Urine Test (obtain specimen); Complete Time: 12:05 bp Administered Medications: No medications were administered Disposition: 11/04/18 12:33 Discharged to Home. Impression: Urinary tract infection, site not specified. - Condition is Stable. - Discharge Instructions: Urinary Tract Infection, Adult. - Prescriptions for Macrobid 100 mg Oral Capsule - take 1 capsule by ORAL route every 12 hours for 10 days; 20 capsule. Pyridium 200 mg Oral Tablet - take 1 tablet by ORAL route every 8 hours for 3 days; 9 tablet. - Medication Reconciliation Form, Thank You Letter, Antibiotic Education, Prescription Opioid Use form. - Follow up: Private Physician; When: As needed; Reason: Recheck today's complaints, Re-evaluation by your physician. - Problem is new. - Symptoms have improved. Signatures: Dispatcher [employer] [facility] Dani Wu MD MD rn Smirch, Shelby, RN RN Jayesh Toussaint RN RN bp Corrections: (The following items were deleted from the chart) 12:43 12:33 11/04/2018 12:33 Discharged to Home. Impression: Urinary tract infection, site bp not specified. Condition is Stable. Forms are Medication Reconciliation Form, Thank You Letter, Antibiotic Education, Prescription Opioid Use. Follow up: Private Physician; When: As needed; Reason: Recheck today's complaints, Re-evaluation by your physician. Problem is new. Symptoms have improved. rn
--- NOTE | 2018-11-04 12:34 | ER ---
Nurse's Notes [facility] Name: Trina Grimaldo Age: 33 yrs Sex: Female : 1985 Arrival Date: 11/04/2018 Time: 11:37 Bed 19 Private MD: None, None Diagnosis: Urinary tract infection, site not specified Presentation: 11/04 11:47 Presenting complaint: Patient states: "My right side has been bothering me for like a ss week. My pee smells real strong." Denies fever, N/V/D. Transition of care: patient was not received from another setting of care. Onset of symptoms was October 29, 2018. Risk Assessment: Do you want to hurt yourself or someone else? Patient reports no desire to harm self or others. Initial Sepsis Screen: Does the patient meet any 2 criteria? No. Patient's initial sepsis screen is negative. Does the patient have a suspected source of infection? No. Patient's initial sepsis screen is negative. Care prior to arrival: None. 11:47 Method Of Arrival: Ambulatory ss 11:47 Acuity: TRI 3 ss Triage Assessment: 11:51 General: Appears in no apparent distress. comfortable, Behavior is calm, cooperative, bp appropriate for age. Pain: Complains of pain in RIGHT FLANK. EENT: No deficits noted. Neuro: Level of Consciousness is awake, alert, obeys commands, Oriented to person, place, time, situation, Appropriate for age. Cardiovascular: No deficits noted. Respiratory: Airway is patent Respiratory effort is even, unlabored, Respiratory pattern is regular, symmetrical. GI: No signs and/or symptoms were reported involving the gastrointestinal system. : Reports pain in right flank(s). Derm: No deficits noted. Musculoskeletal: Circulation, motion, and sensation intact. Range of motion: intact in all extremities. 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 - Social history:: Smoking status: Patient/guardian denies using tobacco. - Ebola Screening: : Patient denies exposure to infectious person Patient denies travel to an Ebola-affected area in the 21 days before illness onset. - Family history:: not pertinent. - Hospitalizations: : No recent hospitalization is reported. Screenin:53 Abuse screen: Denies threats or abuse. Denies injuries from another. Nutritional bp screening: No deficits noted. Tuberculosis screening: No symptoms or risk factors identified. Fall Risk None identified. Assessment: 11:53 General: SEE TRIAGE NOTE. bp 12:42 Reassessment: PT D/C HOME AMBULATORY WITH FAMILY, DX WITH UTI. bp Vital Signs: 11:48 BP 128 / 91; Pulse 86; Resp 16; Temp 97.8(TE); Pulse Ox 99% on R/A; Weight 58.97 kg; ss Height 5 ft. 5 in. (165.10 cm); Pain 9/10; 12:42 BP 121 / 85; Pulse 89; Resp 16; Pulse Ox 99% ; bp 11:48 Body Mass Index 21.63 (58.97 kg, 165.10 cm) ED Course: 11:37 Patient arrived in ED. ag5 11:38 None, None is Private Physician. ag5 11:48 Triage completed. ss 11:48 Arm band placed on left wrist. ss 11:51 Jayesh Toussaint, RN is Primary Nurse. bp 11:53 Patient has correct armband on for positive identification. Bed in low position. Call bp light in reach. Side rails up X2. 11:54 Dani Wu MD is Attending Physician. rn 12:05 Urine Microscopic Only Sent. bp 12:05 Urine Microscopic Only Sent. bp 12:42 No provider procedures requiring assistance completed. Patient did not have IV access bp during this emergency room visit. Administered Medications: No medications were administered Outcome: 12:33 Discharge ordered by . rn 12:43 Discharged to home ambulatory, with family. bp 12:43 Condition: stable 12:43 Discharge instructions given to patient, Instructed on discharge instructions, follow up and referral plans. medication usage, Demonstrated understanding of instructions, follow-up care, medications, Prescriptions given X 2. 12:43 Patient left the ED. bp Signatures: Dani Wu MD MD rn Smirch, Shelby, RN RN Jayesh Toussaint, ANDI RN bp Marie Mike ag5
== END 2018-11-04 12:43 | disposition home or self-care (01) ==
LOC: ER 11:36
DX: N39.0 Urinary tract infection, site not specified (principal)
CPT/HCPCS: 81003; 81015; 81025; 87086; 87088; 99283